=== PATIENT | female | born 1945 | race American Indian/Alaskan Native ===

== ENCOUNTER 2018-04-19 06:01 | Inpatient (IN) | payer MEDICARE, OTHER ==
[~2018-04-19] VITALS: Ht 162.6 cm; Wt 75.6 kg
[~2018-04-19 06:01] MED LIST: ALBU90I INH; AZAT50 PO; AZIT250 PO; CEFP200 PO; CLOR7.5; CYCL10 PO; DOC250 PO; DOXY100 PO; GABA100 PO; HYDACE10B; HYDACE5; IBUP800 PO; LEVOTHYROXINE; LEVSOD150 PO; METO100; METO50; METO50 PO; METOPROLOL; OMEG1CAP30 PO; OXAZEPAM; OXYACE5T PO; OXYC30 PO; PRAV20; PRED20 PO; PROCODE120 PO; Prednisone20 MG PO; SAXA2.5T PO; SIMV10 PO; SULI200; TRADJENTA PO; TRADJENTA5 MG PO; TRANSENE; [UNRECOGNIZED DRUG - REMARK]
[2018-04-19] MEDS ORDERED: Atarax10 MG PO (06:16)
[2018-04-19 07:00] LABS: BASOPHILS ABSOLUTE AUTO 0.03 K/mm3 (0.00-0.23); BASOPHILS PERCENT AUTO 0 % (0-2); EOSINOPHILS ABSOLUTE AUTO 0.02 K/mm3 (0.00-0.68); EOSINOPHILS PERCENT AUTO 0 % (0-6); Hematocrit 43.1 % (33.0-51.0); Hemoglobin 14.1 g/dL (11.5-16.0); IMMATURE GRAN ABSOLUTE AUTO 0.02 K/mm3 (0.00-0.10); IMMATURE GRAN PERCENT AUTO 0 % (0-1); LYMPHOCYTES ABSOLUTE AUTO 1.07 K/mm3 (0.84-5.20); LYMPHOCYTES PERCENT AUTO 15 % (21-46); MONOCYTES ABSOLUTE AUTO 0.52 K/mm3 (0.16-1.47); MONOCYTES PERCENT AUTO 7 % (4-13); Mean Corpuscular HGB 31.5 pg (26.0-34.0); Mean Corpuscular HGB Conc 32.7 g/dL (31.5-36.5); Mean Corpuscular Volume 96 fL (80-100); Mean Platelet Volume 11.2 fL (9.1-12.4); NEUTROPHILS ABSOLUTE AUTO 5.51 K/mm3 (1.96-9.15); NEUTROPHILS PERCENT AUTO 77 % (41-73); Platelet Count 168 K/mm3 (150-400); RDW Coefficient Variation 15.3 % (11.7-14.2); RDW Standard Deviation 54.7 fL (35.1-46.3); Red Blood Cell Count 4.47 M/mm3 (3.80-5.20); White Blood Cell Count 7.17 K/mm3 (4.00-11.30)
[2018-04-19 07:22] LABS: Base Excess Venous 2.1 mmol/L; Bicarbonate Venous 25.8 mmol/L (24.0-30.0); PCO2 Venous 42.8 mmHg (38-42); PO2 Venous 73.8 mmHg (38-42); pH Blood Venous 7.41 (7.34-7.37)
[2018-04-19 07:24] LABS: Alanine Aminotransfer (ALT/SGP 11 U/L (12-78); Albumin, Blood 2.9 g/dL (3.4-5.0); Albumin/Globulin Ratio 0.5 (0.8-1.8); Alk Phos 49 U/L (50-136); Anion Gap 8 mmol/L (6-16); Aspartate Aminotrans (AST/SGOT 16 U/L (12-37); Bilirubin, Total 0.8 mg/dL (0.1-1.0); Blood Urea Nitrogen 15 mg/dL (8-24); Bun/Creatinine Ratio 15.7 (12.0-20.0); CO2, Blood 27 mmol/L (21-32); Calcium, Blood 8.7 mg/dL (8.5-10.1); Chloride, Blood 101 mmol/L (98-108); Creatinine, Blood 0.95 mg/dL (0.40-1.00); Globulin, Blood 5.5 g/dL (2.2-4.0); Glomerular Filtration Rate >60 (60-); Glucose, Blood 108 mg/dL (70-99); Sodium, Blood 136 mmol/L (136-145); Total Protein, Blood 8.4 g/dL (6.4-8.2); Troponin I 0.287 ng/mL (0.000-0.040)
[2018-04-19 07:28] LABS: Thyroid Stimulating Hormone 0.346 uIU/mL (0.360-4.800)
[2018-04-19] MEDS ORDERED: CLORAZEPATE DIP PO (07:56)
[2018-04-19] MEDS ORDERED: PREG150 PO (07:56)
[2018-04-19] MEDS ORDERED: GABA300 PO (07:57)
[2018-04-19 08:48] LABS: U Amphetamine Screen Not Detected; U Barbituate Screen Not Detected; U Benzodiazapine Screen DETECTED; U Buprenorphine Screen Not Detected; U Cannabinoids Screen Not Detected; U Cocaine Screen Not Detected; U Methadone Screen Not Detected; U Methamphetamine Screen Not Detected; U Opiates Screen Not Detected; U Oxycodone Screen DETECTED; U Phencyclidine Screen Not Detected; U Propoxyphene Screen Not Detected
[2018-04-19 11:54] LABS: PCO2 Arterial 48.3 mmHg (35-45); PO2 Arterial 50.6 mmHg (80-100)
[2018-04-20 07:25] LABS: BASOPHILS ABSOLUTE AUTO 0.01 K/mm3 (0.00-0.23); BASOPHILS PERCENT AUTO 0 % (0-2); EOSINOPHILS ABSOLUTE AUTO 0.01 K/mm3 (0.00-0.68); EOSINOPHILS PERCENT AUTO 0 % (0-6); Hematocrit 43.6 % (33.0-51.0); Hemoglobin 14.1 g/dL (11.5-16.0); IMMATURE GRAN ABSOLUTE AUTO 0.06 K/mm3 (0.00-0.10); IMMATURE GRAN PERCENT AUTO 1 % (0-1); LYMPHOCYTES PERCENT AUTO 9 % (21-46); MONOCYTES ABSOLUTE AUTO 0.73 K/mm3 (0.16-1.47); MONOCYTES PERCENT AUTO 6 % (4-13); Mean Corpuscular HGB 30.5 pg (26.0-34.0); Mean Corpuscular HGB Conc 32.3 g/dL (31.5-36.5); Mean Corpuscular Volume 94 fL (80-100); Mean Platelet Volume 11.3 fL (9.1-12.4); NEUTROPHILS ABSOLUTE AUTO 9.63 K/mm3 (1.96-9.15); NEUTROPHILS PERCENT AUTO 84 % (41-73); Platelet Count 198 K/mm3 (150-400); RDW Coefficient Variation 15.4 % (11.7-14.2); RDW Standard Deviation 52.7 fL (35.1-46.3); Red Blood Cell Count 4.62 M/mm3 (3.80-5.20); White Blood Cell Count 11.44 K/mm3 (4.00-11.30)
[2018-04-20 07:46] LABS: Albumin, Blood 2.7 g/dL (3.4-5.0); Albumin/Globulin Ratio 0.5 (0.8-1.8); Bilirubin, Total 0.4 mg/dL (0.1-1.0); Bun/Creatinine Ratio 22.9 (12.0-20.0); Calcium, Blood 8.8 mg/dL (8.5-10.1); Creatinine, Blood 1.18 mg/dL (0.40-1.00); Globulin, Blood 5.3 g/dL (2.2-4.0); Potassium, Blood 4.1 mmol/L (3.5-5.5); Troponin I 0.177 ng/mL (0.000-0.040)
[2018-04-21 04:35] LABS: BASOPHILS ABSOLUTE AUTO 0.03 K/mm3 (0.00-0.23); BASOPHILS PERCENT AUTO 0 % (0-2); EOSINOPHILS ABSOLUTE AUTO 0.03 K/mm3 (0.00-0.68); EOSINOPHILS PERCENT AUTO 0 % (0-6); Hematocrit 42.5 % (33.0-51.0); Hemoglobin 13.6 g/dL (11.5-16.0); IMMATURE GRAN ABSOLUTE AUTO 0.06 K/mm3 (0.00-0.10); IMMATURE GRAN PERCENT AUTO 1 % (0-1); LYMPHOCYTES PERCENT AUTO 12 % (21-46); MONOCYTES ABSOLUTE AUTO 0.63 K/mm3 (0.16-1.47); MONOCYTES PERCENT AUTO 6 % (4-13); Mean Corpuscular HGB 30.6 pg (26.0-34.0); Mean Corpuscular Volume 96 fL (80-100); Mean Platelet Volume 11.3 fL (9.1-12.4); NEUTROPHILS ABSOLUTE AUTO 8.44 K/mm3 (1.96-9.15); NEUTROPHILS PERCENT AUTO 81 % (41-73); Platelet Count 200 K/mm3 (150-400); RDW Coefficient Variation 15.4 % (11.7-14.2); RDW Standard Deviation 53.8 fL (35.1-46.3); Red Blood Cell Count 4.44 M/mm3 (3.80-5.20); White Blood Cell Count 10.39 K/mm3 (4.00-11.30)
[2018-04-21 04:56] LABS: Albumin, Blood 2.8 g/dL (3.4-5.0); Albumin/Globulin Ratio 0.5 (0.8-1.8); Bilirubin, Total 0.3 mg/dL (0.1-1.0); Bun/Creatinine Ratio 30.7 (12.0-20.0); Calcium, Blood 8.6 mg/dL (8.5-10.1); Creatinine, Blood 1.4 mg/dL (0.40-1.00); Free Thyroxine 1.4 ng/dL (0.70-1.60); Globulin, Blood 5.1 g/dL (2.2-4.0); Potassium, Blood 4.6 mmol/L (3.5-5.5); Total Protein, Blood 7.9 g/dL (6.4-8.2)
[2018-04-21] MEDS ORDERED: FURO20 PO (13:41)
[2018-04-21] MEDS ORDERED: ALBU3IS INH (13:45)
[2018-04-21] MEDS ORDERED: Prednisone10 MG PO (13:48)
[2018-04-21] MEDS ORDERED: Pulmicort Flex90 MCG INH (14:03)
[2018-04-21] MEDS ORDERED: CEFD300 PO (14:05)
== END 2018-04-21 15:32 | disposition home or self-care (01) | DRG 291 ==
LOC: ER 06:01 → MEDS 06:02
PROVIDERS: Emergency Medicine; Internal Medicine
DX: I11.0 Hypertensive heart disease with heart failure (principal); J96.01 Acute respiratory failure with hypoxia; J44.1 Chronic obstructive pulmonary disease with (acute) exacerbation; J44.0 Chronic obstructive pulmonary disease with (acute) lower respiratory infection; I24.8 Other forms of acute ischemic heart disease; I50.31 Acute diastolic (congestive) heart failure; F17.210 Nicotine dependence, cigarettes, uncomplicated; M06.9 Rheumatoid arthritis, unspecified; E83.119 Hemochromatosis, unspecified; I45.10 Unspecified right bundle-branch block; I44.0 Atrioventricular block, first degree; E11.9 Type 2 diabetes mellitus without complications; F41.8 Other specified anxiety disorders; E78.5 Hyperlipidemia, unspecified; I42.5 Other restrictive cardiomyopathy; J20.9 Acute bronchitis, unspecified; E03.9 Hypothyroidism, unspecified; Z79.84 Long term (current) use of oral hypoglycemic drugs; E78.1 Pure hyperglyceridemia; I27.23 Pulmonary hypertension due to lung diseases and hypoxia; I27.81 Cor pulmonale (chronic); I35.8 Other nonrheumatic aortic valve disorders; Z99.81 Dependence on supplemental oxygen
CPT/HCPCS: 36415; 36600; 71046; 80053; 82803; 82947; 83880; 84439; 84443; 84484; 85025; 93005; 93010; 93306; 94640; 94761; 94762; 96365; 96375; 99285; J0456; J0696; J1650; J1940; J2920; J2930; J7030; J7050; J7120

== ENCOUNTER 2018-06-01 00:14 | Emergency (ER) | payer MEDICARE, OTHER ==
[~2018-06-01] VITALS: Ht 165.1 cm; Wt 77.1 kg
[~2018-06-01 00:14] MED LIST changes: +ALBU3IS INH; +Atarax10 MG PO; +CEFD300 PO; +CLORAZEPATE DIP PO; +FURO20 PO; +GABA300 PO; +PREG150 PO; +Prednisone10 MG PO; +Pulmicort Flex90 MCG INH
[2018-06-01 03:30] LABS: BASOPHILS ABSOLUTE AUTO 0.04 K/mm3 (0.00-0.23); BASOPHILS PERCENT AUTO 1 % (0-2); EOSINOPHILS ABSOLUTE AUTO 0.11 K/mm3 (0.00-0.68); EOSINOPHILS PERCENT AUTO 2 % (0-6); Hematocrit 44.8 % (33.0-51.0); Hemoglobin 14.6 g/dL (11.5-16.0); IMMATURE GRAN ABSOLUTE AUTO 0.02 K/mm3 (0.00-0.10); IMMATURE GRAN PERCENT AUTO 0 % (0-1); LYMPHOCYTES ABSOLUTE AUTO 1.14 K/mm3 (0.84-5.20); LYMPHOCYTES PERCENT AUTO 16 % (21-46); MONOCYTES ABSOLUTE AUTO 0.49 K/mm3 (0.16-1.47); MONOCYTES PERCENT AUTO 7 % (4-13); Mean Corpuscular HGB 30.8 pg (26.0-34.0); Mean Corpuscular HGB Conc 32.6 g/dL (31.5-36.5); Mean Corpuscular Volume 95 fL (80-100); Mean Platelet Volume 11.4 fL (9.1-12.4); NEUTROPHILS ABSOLUTE AUTO 5.34 K/mm3 (1.96-9.15); NEUTROPHILS PERCENT AUTO 75 % (41-73); Platelet Count 177 K/mm3 (150-400); RDW Coefficient Variation 15.5 % (11.7-14.2); RDW Standard Deviation 53.8 fL (35.1-46.3); Red Blood Cell Count 4.74 M/mm3 (3.80-5.20); White Blood Cell Count 7.14 K/mm3 (4.00-11.30)
[2018-06-01 03:52] LABS: Albumin/Globulin Ratio 0.6 (0.8-1.8); Bilirubin, Total 0.6 mg/dL (0.1-1.0); Bun/Creatinine Ratio 17.1 (12.0-20.0); Calcium, Blood 8.5 mg/dL (8.5-10.1); Creatinine, Blood 0.99 mg/dL (0.40-1.00); Globulin, Blood 4.7 g/dL (2.2-4.0); Magnesium, Blood 2.2 mg/dL (1.6-2.4); Potassium, Blood 4.4 mmol/L (3.5-5.5); Total Protein, Blood 7.7 g/dL (6.4-8.2); Troponin I 0.131 ng/mL (0.000-0.040)
== END 2018-06-01 06:12 | disposition home or self-care (01) ==
LOC: ER 00:14
PROVIDERS: Emergency Medicine
DX: R53.1 Weakness (principal); I11.0 Hypertensive heart disease with heart failure; I50.9 Heart failure, unspecified; E11.9 Type 2 diabetes mellitus without complications; J44.9 Chronic obstructive pulmonary disease, unspecified; F17.210 Nicotine dependence, cigarettes, uncomplicated; Z79.899 Other long term (current) drug therapy; Z79.51 Long term (current) use of inhaled steroids
CPT/HCPCS: 36415; 71046; 80053; 83735; 84484; 85025; 93005; 93010; 99284-25

== ENCOUNTER 2018-06-03 14:57 | Observation (INO) | payer MEDICARE, OTHER ==
[~2018-06-03] VITALS: Ht 162.6 cm; Wt 69.7 kg
[2018-06-03 15:30] LABS: Albumin, Blood 3.4 g/dL (3.4-5.0); Albumin/Globulin Ratio 0.7 (0.8-1.8); Bilirubin, Total 0.7 mg/dL (0.1-1.0); Calcium, Blood 8.9 mg/dL (8.5-10.1); Globulin, Blood 5.1 g/dL (2.2-4.0); Total Protein, Blood 8.5 g/dL (6.4-8.2)
[2018-06-03 15:36] LABS: BASOPHILS ABSOLUTE AUTO 0.03 K/mm3 (0.00-0.23); BASOPHILS PERCENT AUTO 1 % (0-2); EOSINOPHILS ABSOLUTE AUTO 0.03 K/mm3 (0.00-0.68); EOSINOPHILS PERCENT AUTO 1 % (0-6); Hematocrit 51.5 % (33.0-51.0); Hemoglobin 16.8 g/dL (11.5-16.0); IMMATURE GRAN ABSOLUTE AUTO 0.02 K/mm3 (0.00-0.10); IMMATURE GRAN PERCENT AUTO 0 % (0-1); LYMPHOCYTES ABSOLUTE AUTO 1.18 K/mm3 (0.84-5.20); LYMPHOCYTES PERCENT AUTO 19 % (21-46); MONOCYTES ABSOLUTE AUTO 0.42 K/mm3 (0.16-1.47); MONOCYTES PERCENT AUTO 7 % (4-13); Mean Corpuscular HGB 30.2 pg (26.0-34.0); Mean Corpuscular HGB Conc 32.6 g/dL (31.5-36.5); Mean Corpuscular Volume 93 fL (80-100); Mean Platelet Volume 11.5 fL (9.1-12.4); NEUTROPHILS PERCENT AUTO 73 % (41-73); Platelet Count 191 K/mm3 (150-400); RDW Coefficient Variation 15.6 % (11.7-14.2); RDW Standard Deviation 52.7 fL (35.1-46.3); Red Blood Cell Count 5.57 M/mm3 (3.80-5.20); White Blood Cell Count 6.18 K/mm3 (4.00-11.30)
[2018-06-03 18:19] LABS: Source, Urine Clean Catch
[2018-06-03 18:25] LABS: Appearance, Urine Clear (Clear); Bilirubin, Urine Neg (Neg); Blood, Urine 5+ (Neg); Color, Urine Yellow (P-Yellow); Glucose Qualitative, Urine Neg (Neg); Ketones, Urine Neg (Neg); Leukocyte Esterase, Urine Neg (Neg); Nitrite, Urine Neg (Neg); Protein, Urine 2+ (Neg); Specific Gravity, Urine 1.005 (1.003-1.022); Urobilinogen, Urine NORM (Normal)
[2018-06-03 18:53] LABS: Red Blood Cells, Urine 25-50 /hpf (0-2); White Blood Cells, Urine 0-2 /hpf (0-5)
[2018-06-03 18:54] LABS: Bacteria Few /hpf; Squamous Epithelial Cells Rare /hpf (Few)
[2018-06-03] MEDS ORDERED: ACET500 PO (22:11)
[2018-06-03 22:22] LABS: Troponin I 0.146 ng/mL (0.000-0.040)
[2018-06-03 22:24] LABS: Thyroid Stimulating Hormone 1.75 uIU/mL (0.360-4.800)
[2018-06-05 05:37] LABS: BASOPHILS ABSOLUTE AUTO 0.03 K/mm3 (0.00-0.23); BASOPHILS PERCENT AUTO 0 % (0-2); EOSINOPHILS PERCENT AUTO 0 % (0-6); Hemoglobin 13.8 g/dL (11.5-16.0); IMMATURE GRAN ABSOLUTE AUTO 0.03 K/mm3 (0.00-0.10); IMMATURE GRAN PERCENT AUTO 0 % (0-1); LYMPHOCYTES ABSOLUTE AUTO 1.14 K/mm3 (0.84-5.20); LYMPHOCYTES PERCENT AUTO 10 % (21-46); MONOCYTES ABSOLUTE AUTO 0.64 K/mm3 (0.16-1.47); MONOCYTES PERCENT AUTO 6 % (4-13); Mean Corpuscular HGB 30.1 pg (26.0-34.0); Mean Corpuscular HGB Conc 32.1 g/dL (31.5-36.5); Mean Corpuscular Volume 94 fL (80-100); Mean Platelet Volume 11.8 fL (9.1-12.4); NEUTROPHILS ABSOLUTE AUTO 9.27 K/mm3 (1.96-9.15); NEUTROPHILS PERCENT AUTO 83 % (41-73); Platelet Count 182 K/mm3 (150-400); RDW Coefficient Variation 15.8 % (11.7-14.2); RDW Standard Deviation 54.5 fL (35.1-46.3); Red Blood Cell Count 4.58 M/mm3 (3.80-5.20); White Blood Cell Count 11.11 K/mm3 (4.00-11.30)
[2018-06-05 06:04] LABS: Albumin, Blood 2.8 g/dL (3.4-5.0); Albumin/Globulin Ratio 0.7 (0.8-1.8); Bilirubin, Total 0.9 mg/dL (0.1-1.0); Bun/Creatinine Ratio 16.7 (12.0-20.0); Calcium, Blood 8.2 mg/dL (8.5-10.1); Creatinine, Blood 1.2 mg/dL (0.40-1.00); Potassium, Blood 4.1 mmol/L (3.5-5.5); Total Protein, Blood 6.8 g/dL (6.4-8.2)
[2018-06-06] MEDS ORDERED: AMOCLA500 PO (17:09)
[2018-06-06] MEDS ORDERED: Omeprazole20 M1 PO (17:10)
== END 2018-06-06 18:13 | disposition home or self-care (01) ==
LOC: ER 14:57 → MEDS 14:58 → ER 20:56 → MEDS 20:56 → ENPENDDIS 06-06 16:20 → MEDS 06-06 18:13
PROVIDERS: Emergency Medicine; Internal Medicine; Surgery
PROC: 0FT44ZZ Resection of Gallbladder, Percutaneous Endoscopic Approach (ICD-10-PCS; principal; 2018-06-04 15:30)
PROC: BF13YZZ Fluoroscopy of Gallbladder and Bile Ducts using Other Contrast (ICD-10-PCS; principal; 2018-06-04 15:30)
DX: K80.12 Calculus of gallbladder with acute and chronic cholecystitis without obstruction (principal); E11.9 Type 2 diabetes mellitus without complications; J44.9 Chronic obstructive pulmonary disease, unspecified; M06.9 Rheumatoid arthritis, unspecified; F41.9 Anxiety disorder, unspecified; I11.0 Hypertensive heart disease with heart failure; I50.30 Unspecified diastolic (congestive) heart failure; F17.210 Nicotine dependence, cigarettes, uncomplicated; R31.29 Other microscopic hematuria; E03.9 Hypothyroidism, unspecified; Z79.899 Other long term (current) drug therapy
CPT/HCPCS: 36415; 71046; 74177; 74300; 76705; 76770; 80053; 81001; 82947; 83036; 83690; 83880; 84443; 84484; 85025; 93005; 93010; 96361; 96365; 96372; 96375; 96376; 99284-25; C1729; C9113; G0378; J0690; J1100; J1650; J1815; J1885; J1940; J2250; J2405; J2550; J2710; J3010; J7030; J7120; Q9967

== ENCOUNTER 2018-06-08 00:54 | Observation (INO) | payer MEDICARE, OTHER ==
[~2018-06-08] VITALS: Ht 165.1 cm; Wt 68.5 kg
[~2018-06-08 00:54] MED LIST changes: +ACET500 PO; +AMOCLA500 PO; +Omeprazole20 M1 PO
[2018-06-08 01:15] LABS: BASOPHILS ABSOLUTE AUTO 0.03 K/mm3 (0.00-0.23); BASOPHILS PERCENT AUTO 0 % (0-2); EOSINOPHILS ABSOLUTE AUTO 0.19 K/mm3 (0.00-0.68); EOSINOPHILS PERCENT AUTO 2 % (0-6); Hemoglobin 14.9 g/dL (11.5-16.0); IMMATURE GRAN ABSOLUTE AUTO 0.05 K/mm3 (0.00-0.10); IMMATURE GRAN PERCENT AUTO 1 % (0-1); LYMPHOCYTES ABSOLUTE AUTO 0.91 K/mm3 (0.84-5.20); LYMPHOCYTES PERCENT AUTO 8 % (21-46); MONOCYTES ABSOLUTE AUTO 0.42 K/mm3 (0.16-1.47); MONOCYTES PERCENT AUTO 4 % (4-13); Mean Corpuscular HGB 31.2 pg (26.0-34.0); Mean Corpuscular HGB Conc 33.1 g/dL (31.5-36.5); Mean Corpuscular Volume 94 fL (80-100); Mean Platelet Volume 11.6 fL (9.1-12.4); NEUTROPHILS ABSOLUTE AUTO 9.33 K/mm3 (1.96-9.15); NEUTROPHILS PERCENT AUTO 85 % (41-73); Platelet Count 167 K/mm3 (150-400); RDW Coefficient Variation 15.7 % (11.7-14.2); RDW Standard Deviation 54.8 fL (35.1-46.3); Red Blood Cell Count 4.77 M/mm3 (3.80-5.20); White Blood Cell Count 10.93 K/mm3 (4.00-11.30)
[2018-06-08 01:31] LABS: Alanine Aminotransfer (ALT/SGP 10 U/L (12-78); Albumin, Blood 2.6 g/dL (3.4-5.0); Albumin/Globulin Ratio 0.5 (0.8-1.8); Alk Phos 57 U/L (50-136); Anion Gap 9 mmol/L (6-16); Aspartate Aminotrans (AST/SGOT 14 U/L (12-37); Bilirubin, Total 0.6 mg/dL (0.1-1.0); Blood Urea Nitrogen 21 mg/dL (8-24); Bun/Creatinine Ratio 24.5 (12.0-20.0); CO2, Blood 25 mmol/L (21-32); Calcium, Blood 8.9 mg/dL (8.5-10.1); Chloride, Blood 101 mmol/L (98-108); Creatinine, Blood 0.86 mg/dL (0.40-1.00); Globulin, Blood 5.1 g/dL (2.2-4.0); Glomerular Filtration Rate >60 (60-); Glucose, Blood 146 mg/dL (70-99); Potassium, Blood 3.7 mmol/L (3.5-5.5); Sodium, Blood 135 mmol/L (136-145); Total Protein, Blood 7.7 g/dL (6.4-8.2)
[2018-06-08 06:04] LABS: Source, Urine Clean Catch
[2018-06-08 06:23] LABS: Bilirubin, Urine Neg (Neg); Blood, Urine 5+ (Neg); Glucose Qualitative, Urine Neg (Neg); Ketones, Urine 1+ (Neg); Leukocyte Esterase, Urine 1+ (Neg); Nitrite, Urine Neg (Neg); Protein, Urine 3+ (Neg); Urobilinogen, Urine 1+ (Normal)
[2018-06-08 06:54] LABS: Appearance, Urine Clear (Clear); Color, Urine Yellow (P-Yellow)
[2018-06-08 06:59] LABS: Squamous Epithelial Cells Mod /hpf (Few)
[2018-06-08 07:01] LABS: Bacteria Few /hpf
== END 2018-06-10 17:07 | disposition home or self-care (01) ==
LOC: ER 00:54 → MEDS 00:55 → SURS 00:55
PROVIDERS: Emergency Medicine
DX: R10.9 Unspecified abdominal pain (principal); G89.18 Other acute postprocedural pain; E11.9 Type 2 diabetes mellitus without complications; J44.9 Chronic obstructive pulmonary disease, unspecified; M10.9 Gout, unspecified; I11.0 Hypertensive heart disease with heart failure; I50.32 Chronic diastolic (congestive) heart failure; E83.119 Hemochromatosis, unspecified; F17.210 Nicotine dependence, cigarettes, uncomplicated; F41.9 Anxiety disorder, unspecified; Z90.49 Acquired absence of other specified parts of digestive tract; Z79.899 Other long term (current) drug therapy
CPT/HCPCS: 36415; 71046; 74177; 80053; 81001; 83690; 85025; 94760; 96372; 96374; 96375; 96376; 99285-25; G0378; J1650; J2405; J3010; Q9967

== ENCOUNTER 2018-08-02 16:36 | Emergency (ER) | payer MEDICARE, OTHER ==
[~2018-08-02] VITALS: Ht 162.6 cm; Wt 65.3 kg
[2018-08-02 17:12] LABS: BASOPHILS ABSOLUTE AUTO 0.02 K/mm3 (0.00-0.23); BASOPHILS PERCENT AUTO 0 % (0-2); EOSINOPHILS PERCENT AUTO 0 % (0-6); Hematocrit 45.1 % (33.0-51.0); Hemoglobin 15.1 g/dL (11.5-16.0); IMMATURE GRAN ABSOLUTE AUTO 0.06 K/mm3 (0.00-0.10); IMMATURE GRAN PERCENT AUTO 1 % (0-1); LYMPHOCYTES ABSOLUTE AUTO 1.06 K/mm3 (0.84-5.20); LYMPHOCYTES PERCENT AUTO 9 % (21-46); MONOCYTES ABSOLUTE AUTO 1.08 K/mm3 (0.16-1.47); MONOCYTES PERCENT AUTO 9 % (4-13); Mean Corpuscular HGB 31.1 pg (26.0-34.0); Mean Corpuscular HGB Conc 33.5 g/dL (31.5-36.5); Mean Corpuscular Volume 93 fL (80-100); Mean Platelet Volume 10.5 fL (9.1-12.4); NEUTROPHILS ABSOLUTE AUTO 9.98 K/mm3 (1.96-9.15); NEUTROPHILS PERCENT AUTO 82 % (41-73); Platelet Count 206 K/mm3 (150-400); RDW Coefficient Variation 14.5 % (11.7-14.2); RDW Standard Deviation 48.7 fL (35.1-46.3); Red Blood Cell Count 4.85 M/mm3 (3.80-5.20)
[2018-08-02 17:32] LABS: Alanine Aminotransfer (ALT/SGP 10 U/L (12-78); Albumin/Globulin Ratio 0.5 (0.8-1.8); Alk Phos 76 U/L (50-136); Anion Gap 10 mmol/L (6-16); Aspartate Aminotrans (AST/SGOT 12 U/L (12-37); Bilirubin, Total 1.2 mg/dL (0.1-1.0); Blood Urea Nitrogen 13 mg/dL (8-24); Bun/Creatinine Ratio 15.4 (12.0-20.0); CO2, Blood 26 mmol/L (21-32); Calcium, Blood 8.8 mg/dL (8.5-10.1); Chloride, Blood 96 mmol/L (98-108); Creatinine, Blood 0.85 mg/dL (0.40-1.00); Globulin, Blood 5.5 g/dL (2.2-4.0); Glomerular Filtration Rate >60 (60-); Glucose, Blood 146 mg/dL (70-99); Potassium, Blood 3.9 mmol/L (3.5-5.5); Sodium, Blood 132 mmol/L (136-145); Total Protein, Blood 8.5 g/dL (6.4-8.2); Troponin I 0.133 ng/mL (0.000-0.040)
[2018-08-02] MEDS ORDERED: Zithromax250 MG PO (19:24)
== END 2018-08-02 19:48 | disposition home or self-care (01) ==
LOC: ER 16:36
PROVIDERS: Emergency Medicine
DX: G89.29 Other chronic pain (principal); M25.511 Pain in right shoulder; J40 Bronchitis, not specified as acute or chronic; E11.9 Type 2 diabetes mellitus without complications; J44.9 Chronic obstructive pulmonary disease, unspecified; I10 Essential (primary) hypertension; Z79.899 Other long term (current) drug therapy
CPT/HCPCS: 71046; 80053; 83880; 84484; 85025; 93005; 93010; 96374; 96375; 99284-25; J1170; J3010

== ENCOUNTER 2019-03-03 17:10 | Inpatient (IN) | payer MEDICARE, OTHER ==
[~2019-03-03] VITALS: Ht 167.6 cm; Wt 77.1 kg
[~2019-03-03 17:10] MED LIST changes: +ACET325 PO; +GAVILAX17 GM PO; +HYDHCL25 PO; +LEVFLO500 PO; +LEVO-T175 MCG PO; +METPRE4DP PO; +NICO21TP; +ONDA8 PO; -OXYC30 PO; +POTA10T PO; +PRED10; +PRED10 PO; +SENN187; +Zithromax250 MG PO
[2019-03-03 17:50] LABS: BASOPHILS ABSOLUTE AUTO 0.01 K/mm3 (0.00-0.23); BASOPHILS PERCENT AUTO 0 % (0-2); EOSINOPHILS ABSOLUTE AUTO 0.02 K/mm3 (0.00-0.68); EOSINOPHILS PERCENT AUTO 0 % (0-6); Hematocrit 45.5 % (33.0-51.0); Hemoglobin 14.9 g/dL (11.5-16.0); IMMATURE GRAN ABSOLUTE AUTO 0.04 K/mm3 (0.00-0.10); IMMATURE GRAN PERCENT AUTO 0 % (0-1); LYMPHOCYTES ABSOLUTE AUTO 0.98 K/mm3 (0.84-5.20); LYMPHOCYTES PERCENT AUTO 11 % (21-46); MONOCYTES ABSOLUTE AUTO 0.65 K/mm3 (0.16-1.47); MONOCYTES PERCENT AUTO 7 % (4-13); Mean Corpuscular HGB 32.6 pg (26.0-34.0); Mean Corpuscular HGB Conc 32.7 g/dL (31.5-36.5); Mean Corpuscular Volume 100 fL (80-100); Mean Platelet Volume 10.3 fL (9.1-12.4); NEUTROPHILS ABSOLUTE AUTO 7.41 K/mm3 (1.96-9.15); NEUTROPHILS PERCENT AUTO 81 % (41-73); Platelet Count 189 K/mm3 (150-400); RDW Coefficient Variation 14.8 % (11.7-14.2); RDW Standard Deviation 53.3 fL (35.1-46.3); Red Blood Cell Count 4.57 M/mm3 (3.80-5.20); White Blood Cell Count 9.11 K/mm3 (4.00-11.30)
[2019-03-03 18:11] LABS: Alanine Aminotransfer (ALT/SGP 17 U/L (12-78); Albumin, Blood 3.4 g/dL (3.4-5.0); Albumin/Globulin Ratio 0.7 (0.8-1.8); Alk Phos 69 U/L (50-136); Anion Gap 6 mmol/L (6-16); Aspartate Aminotrans (AST/SGOT 23 U/L (12-37); Bilirubin, Total 0.6 mg/dL (0.1-1.0); Blood Urea Nitrogen 22 mg/dL (8-24); Bun/Creatinine Ratio 25.3 (12.0-20.0); CO2, Blood 29 mmol/L (21-32); Chloride, Blood 101 mmol/L (98-108); Creatinine, Blood 0.87 mg/dL (0.40-1.00); Globulin, Blood 4.7 g/dL (2.2-4.0); Glomerular Filtration Rate >60 (60-); Glucose, Blood 105 mg/dL (70-99); Potassium, Blood 4.3 mmol/L (3.5-5.5); Sodium, Blood 136 mmol/L (136-145); Total Protein, Blood 8.1 g/dL (6.4-8.2)
[2019-03-03] MEDS ORDERED: Oxycodone HCl20 M1 PO (19:53)
[2019-03-04 00:32] LABS: Adenovirus Not Detected (NOT DETECT); Bordetella pertussis Not Detected (NOT DETECT); Chlamydophila pneumoniae Not Detected (NOT DETECT); Coronavirus 229E Not Detected (NOT DETECT); Coronavirus HKU1 Not Detected (NOT DETECT); Coronavirus NL63 Not Detected (NOT DETECT); Coronavirus OC43 Not Detected (NOT DETECT); Human Metapneumovirus Not Detected (NOT DETECT); Human Rhinovirus/Enterovirus Not Detected (NOT DETECT); Influenza A Not Detected (NOT DETECT); Influenza A/2009-H1 Not Detected (NOT DETECT); Influenza A/H1 Not Detected (NOT DETECT); Influenza A/H3 Not Detected (NOT DETECT); Influenza B Not Detected (NOT DETECT); Mycoplasma pneumoniae Not Detected (NOT DETECT); Parainfluenza Virus 1 Not Detected (NOT DETECT); Parainfluenza Virus 2 Not Detected (NOT DETECT); Parainfluenza Virus 3 Not Detected (NOT DETECT); Parainfluenza Virus 4 Not Detected (NOT DETECT); Respiratory Syncytial Virus Not Detected (NOT DETECT)
--- NOTE | 2019-03-04 03:50 | NUR ---
2121 RECEIVED REPORT FROM ED RN. SBAR FORM COMPLETED AND PLACED IN CHART. ARRIVED TO MEDICAL UNIT @ 2121 VIA STRETCHER. MINIMAL HELP WITH TRANSFER FROM STRETCHER TO BED. ORIENTED TO ROOM AND CALL SYSTEM. BED IN LOWEST POSITION. CALL LIGHT IN REACH. WCTM.
--- NOTE | 2019-03-04 04:58 | NUR ---
SHIFT SUMMARY A/O, ABLE TO MAKE NEEDS KNOWN. COOPERATIVE WITH CARE. ANSWERS QUESTIONS APPROPRIATELY. C/O PAIN/DISCOMFORT THAT IS CHRONIC IN NATURE; MEDICATED PER EMAR. ON 2L VIA NC; USES PRN. LUNGS CTA. REMAINS DYSPNEIC. DRY HACKING COUGH THAT IS NON-PRODUCTIVE. AT BEDSIDE THROUGHOUT NIGHT. DID NOT APPEAR TO REST MUCH. UP TO BSC WITH SBA. BED IN LOWEST POSITION. CALL LIGHT AND BELONGINGS WITHIN REACH. WCTM. REPORT TO ONCOMING RN.
[2019-03-04 05:34] LABS: BASOPHILS ABSOLUTE AUTO 0.01 K/mm3 (0.00-0.23); BASOPHILS PERCENT AUTO 0 % (0-2); EOSINOPHILS PERCENT AUTO 0 % (0-6); Hemoglobin 14.5 g/dL (11.5-16.0); IMMATURE GRAN ABSOLUTE AUTO 0.03 K/mm3 (0.00-0.10); IMMATURE GRAN PERCENT AUTO 1 % (0-1); LYMPHOCYTES ABSOLUTE AUTO 0.46 K/mm3 (0.84-5.20); LYMPHOCYTES PERCENT AUTO 7 % (21-46); MONOCYTES ABSOLUTE AUTO 0.05 K/mm3 (0.16-1.47); MONOCYTES PERCENT AUTO 1 % (4-13); Mean Corpuscular HGB 32.2 pg (26.0-34.0); Mean Corpuscular HGB Conc 32.2 g/dL (31.5-36.5); Mean Corpuscular Volume 100 fL (80-100); Mean Platelet Volume 10.3 fL (9.1-12.4); NEUTROPHILS ABSOLUTE AUTO 5.98 K/mm3 (1.96-9.15); NEUTROPHILS PERCENT AUTO 92 % (41-73); Platelet Count 183 K/mm3 (150-400); RDW Coefficient Variation 14.6 % (11.7-14.2); RDW Standard Deviation 53.5 fL (35.1-46.3); White Blood Cell Count 6.53 K/mm3 (4.00-11.30)
[2019-03-04 05:56] LABS: Anion Gap 7 mmol/L (6-16); Blood Urea Nitrogen 29 mg/dL (8-24); Bun/Creatinine Ratio 31.6 (12.0-20.0); CO2, Blood 26 mmol/L (21-32); Calcium, Blood 8.8 mg/dL (8.5-10.1); Chloride, Blood 100 mmol/L (98-108); Creatinine, Blood 0.92 mg/dL (0.40-1.00); Glomerular Filtration Rate >60 (60-); Glucose, Blood 150 mg/dL (70-99); Potassium, Blood 4.5 mmol/L (3.5-5.5); Sodium, Blood 133 mmol/L (136-145)
[2019-03-04 17:14] LABS: Bun/Creatinine Ratio 42.3 (12.0-20.0); Calcium, Blood 8.7 mg/dL (8.5-10.1); Creatinine, Blood 0.97 mg/dL (0.40-1.00); Potassium, Blood 4.5 mmol/L (3.5-5.5)
--- NOTE | 2019-03-04 18:04 | NUR ---
SHIFT SUMMARY NO ACUTE CHANGES. PATIENT UP SBA TO BATHROOM. AT BEDSIDE. POSSIBLE DISCHARGE TOMORROW. MEDICATED X2 FOR PAIN. 2L 02 PRN FOR SHORTNESS OF BREATH. CALL LIGHT IN REACH, WILL CONTINUE TO MONITOR.
--- NOTE | 2019-03-05 05:04 | NUR ---
SHIFT SUMMARY PT A/O C/O PAIN AND MEDICATED PER EMAR. FAMILY WHEELED HER IN W/C AROUND FLOOR AND OUTSIDE TO POSS SMOKE. CONGESTED SOUNDING COUGH. SHE WAS ABLE TO SLEEP T/O NIGHT. STAYED IN ROOM, SOMETIMES SLEEPING IN SAME PT'S BED. CALL LIGHT IN REACH.
[2019-03-05 05:34] LABS: BASOPHILS ABSOLUTE AUTO 0.01 K/mm3 (0.00-0.23); BASOPHILS PERCENT AUTO 0 % (0-2); EOSINOPHILS PERCENT AUTO 0 % (0-6); Hematocrit 45.5 % (33.0-51.0); IMMATURE GRAN ABSOLUTE AUTO 0.04 K/mm3 (0.00-0.10); IMMATURE GRAN PERCENT AUTO 0 % (0-1); LYMPHOCYTES ABSOLUTE AUTO 1.47 K/mm3 (0.84-5.20); LYMPHOCYTES PERCENT AUTO 14 % (21-46); MONOCYTES ABSOLUTE AUTO 0.96 K/mm3 (0.16-1.47); MONOCYTES PERCENT AUTO 9 % (4-13); Mean Corpuscular HGB 32.3 pg (26.0-34.0); Mean Corpuscular Volume 98 fL (80-100); Mean Platelet Volume 10.3 fL (9.1-12.4); NEUTROPHILS ABSOLUTE AUTO 8.05 K/mm3 (1.96-9.15); NEUTROPHILS PERCENT AUTO 76 % (41-73); Platelet Count 190 K/mm3 (150-400); RDW Coefficient Variation 14.6 % (11.7-14.2); RDW Standard Deviation 52.4 fL (35.1-46.3); Red Blood Cell Count 4.64 M/mm3 (3.80-5.20); White Blood Cell Count 10.53 K/mm3 (4.00-11.30)
[2019-03-05 05:58] LABS: Albumin, Blood 3.1 g/dL (3.4-5.0); Albumin/Globulin Ratio 0.7 (0.8-1.8); Bilirubin, Total 0.6 mg/dL (0.1-1.0); Bun/Creatinine Ratio 45.3 (12.0-20.0); Calcium, Blood 8.6 mg/dL (8.5-10.1); Creatinine, Blood 1.06 mg/dL (0.40-1.00); Globulin, Blood 4.6 g/dL (2.2-4.0); Magnesium, Blood 2.5 mg/dL (1.6-2.4); Phosphorus, Blood 3.3 mg/dL (2.5-4.9); Potassium, Blood 4.4 mmol/L (3.5-5.5); Total Protein, Blood 7.7 g/dL (6.4-8.2)
[2019-03-05] MEDS ORDERED: ACET325 PO (12:33)
[2019-03-05] MEDS ORDERED: FURO40 PO (12:34)
[2019-03-05] MEDS ORDERED: DULERA 200 MCG/13 GM INH (12:35)
[2019-03-05] MEDS ORDERED: SPIR25 PO (12:38)
[2019-03-05] MEDS ORDERED: ALBU90OI INH (12:40)
--- NOTE | 2019-03-05 13:14 | NUR ---
PT DISCHARGED PT DISCHARGED AT 1300. PT IN STABLE CONDITION WITH VSS. PT EDUCATED ON DC INSTRUCTIONS. PT DENIES ANY QUESTIONS. PT WHEELED OUT BY ESCORT & DRIVEN HOME BY .
--- NOTE | 2019-03-05 13:48 | NUR ---
Pt. waiting for discharge wisged pt. all the best while at home
== END 2019-03-05 13:09 | disposition home or self-care (01) | DRG 292 ==
LOC: ER 17:10 → MEDS 20:15 → ENPENDDIS 03-05 11:35 → MEDS 03-05 13:09
PROVIDERS: Emergency Medicine; Hospitalist; Nurse Practitioner Acute Care; ADMIT Internal Medicine
DX: I11.0 Hypertensive heart disease with heart failure (principal); J44.1 Chronic obstructive pulmonary disease with (acute) exacerbation; F11.20 Opioid dependence, uncomplicated; J96.11 Chronic respiratory failure with hypoxia; I50.33 Acute on chronic diastolic (congestive) heart failure; M06.9 Rheumatoid arthritis, unspecified; E03.9 Hypothyroidism, unspecified; E78.5 Hyperlipidemia, unspecified; F17.210 Nicotine dependence, cigarettes, uncomplicated; E11.9 Type 2 diabetes mellitus without complications; F41.1 Generalized anxiety disorder; F32.9 Major depressive disorder, single episode, unspecified; I45.10 Unspecified right bundle-branch block; Z99.81 Dependence on supplemental oxygen; G89.4 Chronic pain syndrome
CPT/HCPCS: 36415; 71046; 80048; 80053; 82947; 83690; 83735; 83880; 84100; 84145; 84484; 85025; 87486; 87581; 87633; 87798; 93005; 93010; 94640; 94760; 96374; 96375; 99284-25; 99285-25; J0360; J1650; J1940; J2405; J2930

== ENCOUNTER 2019-05-06 23:43 | Emergency (ER) | payer MEDICARE, OTHER ==
[~2019-05-06] VITALS: Ht 165.1 cm; Wt 61.2 kg
[~2019-05-06 23:43] MED LIST changes: +ALBU90OI INH; +DULERA 200 MCG/13 GM INH; +FURO40 PO; +LISI5 PO; +Oxycodone HCl20 M1 PO; +SERT50 PO; +SPIR25 PO; +Vistaril50 MG PO
[2019-05-07 00:14] LABS: BASOPHILS ABSOLUTE AUTO 0.04 K/mm3 (0.00-0.23); BASOPHILS PERCENT AUTO 1 % (0-2); EOSINOPHILS ABSOLUTE AUTO 0.05 K/mm3 (0.00-0.68); EOSINOPHILS PERCENT AUTO 1 % (0-6); Hematocrit 48.1 % (33.0-51.0); Hemoglobin 16.3 g/dL (11.5-16.0); IMMATURE GRAN ABSOLUTE AUTO 0.03 K/mm3 (0.00-0.10); IMMATURE GRAN PERCENT AUTO 0 % (0-1); LYMPHOCYTES ABSOLUTE AUTO 0.92 K/mm3 (0.84-5.20); LYMPHOCYTES PERCENT AUTO 13 % (21-46); MONOCYTES ABSOLUTE AUTO 0.44 K/mm3 (0.16-1.47); MONOCYTES PERCENT AUTO 6 % (4-13); Mean Corpuscular HGB 32.2 pg (26.0-34.0); Mean Corpuscular HGB Conc 33.9 g/dL (31.5-36.5); Mean Corpuscular Volume 95 fL (80-100); Mean Platelet Volume 10.4 fL (9.1-12.4); NEUTROPHILS ABSOLUTE AUTO 5.86 K/mm3 (1.96-9.15); NEUTROPHILS PERCENT AUTO 80 % (41-73); Platelet Count 230 K/mm3 (150-400); RDW Coefficient Variation 13.9 % (11.7-14.2); Red Blood Cell Count 5.06 M/mm3 (3.80-5.20); White Blood Cell Count 7.34 K/mm3 (4.00-11.30)
[2019-05-07 00:28] LABS: Albumin, Blood 3.2 g/dL (3.4-5.0); Albumin/Globulin Ratio 0.7 (0.8-1.8); Bilirubin, Total 0.6 mg/dL (0.1-1.0); Bun/Creatinine Ratio 15.1 (12.0-20.0); Calcium, Blood 9.1 mg/dL (8.5-10.1); Creatinine, Blood 0.99 mg/dL (0.40-1.00); Globulin, Blood 4.8 g/dL (2.2-4.0); Potassium, Blood 4.2 mmol/L (3.5-5.5); Troponin I 0.059 ng/mL (0.000-0.040)
[2019-05-07 01:51] LABS: Source, Urine Clean Catch
[2019-05-07 01:59] LABS: Bilirubin, Urine Neg (Neg); Blood, Urine 3+ (Neg); Glucose Qualitative, Urine Neg (Neg); Ketones, Urine Neg (Neg); Leukocyte Esterase, Urine Neg (Neg); Nitrite, Urine Neg (Neg); Protein, Urine 2+ (Neg); Urobilinogen, Urine NORM (Normal)
[2019-05-07 02:21] LABS: Appearance, Urine Clear (Clear); Bacteria Rare /hpf; Color, Urine Yellow (P-Yellow); Squamous Epithelial Cells Few /hpf (Few); White Blood Cells, Urine Rare /hpf (0-5)
== END 2019-05-07 03:22 | disposition home or self-care (01) ==
LOC: ER 23:43
PROVIDERS: Emergency Medicine
DX: R10.11 Right upper quadrant pain (principal); J44.9 Chronic obstructive pulmonary disease, unspecified; E11.9 Type 2 diabetes mellitus without complications; I11.0 Hypertensive heart disease with heart failure; I50.32 Chronic diastolic (congestive) heart failure; E03.9 Hypothyroidism, unspecified; Z79.899 Other long term (current) drug therapy
CPT/HCPCS: 71046; 80053; 81001; 83880; 84484; 85025; 93005; 93010; 99284-25; A9270-GY

== ENCOUNTER 2019-06-25 12:15 | Emergency (ER) | payer MEDICARE, OTHER ==
[~2019-06-25] VITALS: Ht 162.6 cm; Wt 77.1 kg
[2019-06-25 13:17] LABS: BASOPHILS ABSOLUTE AUTO 0.04 K/mm3 (0.00-0.23); BASOPHILS PERCENT AUTO 1 % (0-2); EOSINOPHILS ABSOLUTE AUTO 0.06 K/mm3 (0.00-0.68); EOSINOPHILS PERCENT AUTO 1 % (0-6); Hematocrit 47.4 % (33.0-51.0); Hemoglobin 15.6 g/dL (11.5-16.0); IMMATURE GRAN ABSOLUTE AUTO 0.02 K/mm3 (0.00-0.10); IMMATURE GRAN PERCENT AUTO 0 % (0-1); LYMPHOCYTES ABSOLUTE AUTO 1.17 K/mm3 (0.84-5.20); LYMPHOCYTES PERCENT AUTO 17 % (21-46); MONOCYTES ABSOLUTE AUTO 0.48 K/mm3 (0.16-1.47); MONOCYTES PERCENT AUTO 7 % (4-13); Mean Corpuscular HGB 30.8 pg (26.0-34.0); Mean Corpuscular HGB Conc 32.9 g/dL (31.5-36.5); Mean Corpuscular Volume 94 fL (80-100); Mean Platelet Volume 11.3 fL (9.1-12.4); NEUTROPHILS ABSOLUTE AUTO 5.21 K/mm3 (1.96-9.15); NEUTROPHILS PERCENT AUTO 75 % (41-73); Platelet Count 150 K/mm3 (150-400); RDW Coefficient Variation 14.5 % (11.7-14.2); RDW Standard Deviation 49.4 fL (35.1-46.3); Red Blood Cell Count 5.07 M/mm3 (3.80-5.20); White Blood Cell Count 6.98 K/mm3 (4.00-11.30)
[2019-06-25 13:37] LABS: Alanine Aminotransfer (ALT/SGP 29 U/L (12-78); Albumin, Blood 3.2 g/dL (3.4-5.0); Albumin/Globulin Ratio 0.7 (0.8-1.8); Alk Phos 80 U/L (50-136); Anion Gap 8 mmol/L (6-16); Aspartate Aminotrans (AST/SGOT 22 U/L (12-37); Blood Urea Nitrogen 22 mg/dL (8-24); Bun/Creatinine Ratio 23.8 (12.0-20.0); CO2, Blood 25 mmol/L (21-32); Calcium, Blood 8.8 mg/dL (8.5-10.1); Chloride, Blood 107 mmol/L (98-108); Creatinine, Blood 0.92 mg/dL (0.40-1.00); Globulin, Blood 4.4 g/dL (2.2-4.0); Glomerular Filtration Rate >60 (60-); Glucose, Blood 127 mg/dL (70-99); Potassium, Blood 3.9 mmol/L (3.5-5.5); Sodium, Blood 140 mmol/L (136-145); Total Protein, Blood 7.6 g/dL (6.4-8.2); Troponin I 0.067 ng/mL (0.000-0.040)
[2019-06-25 14:56] LABS: Source, Urine Clean Catch
[2019-06-25 15:06] LABS: Bilirubin, Urine Neg (Neg); Blood, Urine 1+ (Neg); Glucose Qualitative, Urine Neg (Neg); Ketones, Urine 1+ (Neg); Leukocyte Esterase, Urine 1+ (Neg); Nitrite, Urine Neg (Neg); Protein, Urine 1+ (Neg); Urobilinogen, Urine NORM (Normal)
[2019-06-25 15:23] LABS: Appearance, Urine Clear (Clear); Color, Urine Yellow (P-Yellow)
[2019-06-25 15:24] LABS: Bacteria Mod /hpf; Squamous Epithelial Cells Few /hpf (Few)
[2019-06-25] MEDS ORDERED: Macrobid 100 M100 MG PO (16:07)
== END 2019-06-25 16:30 | disposition home or self-care (01) ==
LOC: ER 12:15
PROVIDERS: Emergency Medicine
DX: N39.0 Urinary tract infection, site not specified (principal); J44.9 Chronic obstructive pulmonary disease, unspecified; M06.9 Rheumatoid arthritis, unspecified; I11.0 Hypertensive heart disease with heart failure; I50.9 Heart failure, unspecified; E03.9 Hypothyroidism, unspecified; E78.5 Hyperlipidemia, unspecified; E11.9 Type 2 diabetes mellitus without complications; F17.200 Nicotine dependence, unspecified, uncomplicated; Z79.899 Other long term (current) drug therapy
CPT/HCPCS: 36415; 71046; 80053; 81001; 83690; 83880; 84484; 85025; 87086; 93005; 93010; 99285-25

== ENCOUNTER 2019-10-26 13:19 | Emergency (ER) | payer MEDICARE, OTHER ==
[~2019-10-26] VITALS: Ht 165.1 cm; Wt 59.0 kg
[~2019-10-26 13:19] MED LIST changes: +Macrobid 100 M100 MG PO
[2019-10-26] MEDS ORDERED: LEVO-T175 MCG PO (13:29)
[2019-10-26] MEDS ORDERED: ESCI20 PO (13:30)
[2019-10-26] MEDS ORDERED: FENO67 PO (13:30)
[2019-10-26 15:27] LABS: Source, Urine Catheter
[2019-10-26 15:30] LABS: Bilirubin, Urine Neg (Neg); Blood, Urine 4+ (Neg); Color, Urine Yellow (P-Yellow); Glucose Qualitative, Urine Neg (Neg); Ketones, Urine 1+ (Neg); Leukocyte Esterase, Urine 1+ (Neg); Nitrite, Urine Neg (Neg); Protein, Urine 4+ (Neg); Specific Gravity, Urine 1.025 (1.003-1.022); Urobilinogen, Urine NORM (Normal)
[2019-10-26 15:35] LABS: BASOPHILS ABSOLUTE AUTO 0.02 K/mm3 (0.00-0.23); BASOPHILS PERCENT AUTO 0 % (0-2); EOSINOPHILS ABSOLUTE AUTO 0.02 K/mm3 (0.00-0.68); EOSINOPHILS PERCENT AUTO 0 % (0-6); Hematocrit 51.5 % (33.0-51.0); IMMATURE GRAN ABSOLUTE AUTO 0.01 K/mm3 (0.00-0.10); IMMATURE GRAN PERCENT AUTO 0 % (0-1); LYMPHOCYTES ABSOLUTE AUTO 0.92 K/mm3 (0.84-5.20); LYMPHOCYTES PERCENT AUTO 15 % (21-46); MONOCYTES ABSOLUTE AUTO 0.34 K/mm3 (0.16-1.47); MONOCYTES PERCENT AUTO 6 % (4-13); Mean Corpuscular HGB 32.6 pg (26.0-34.0); Mean Corpuscular Volume 99 fL (80-100); Mean Platelet Volume 10.3 fL (9.1-12.4); NEUTROPHILS ABSOLUTE AUTO 4.77 K/mm3 (1.96-9.15); NEUTROPHILS PERCENT AUTO 79 % (41-73); Platelet Count 181 K/mm3 (150-400); RDW Coefficient Variation 13.5 % (11.7-14.2); RDW Standard Deviation 49.5 fL (35.1-46.3); Red Blood Cell Count 5.22 M/mm3 (3.80-5.20); White Blood Cell Count 6.08 K/mm3 (4.00-11.30)
[2019-10-26 15:40] LABS: Appearance, Urine Hazy (Clear)
[2019-10-26 15:42] LABS: Bacteria Mod /hpf; Squamous Epithelial Cells Few /hpf (Few)
[2019-10-26 15:45] LABS: Hyaline Casts 0-2 /lpf (0-2)
[2019-10-26 15:57] LABS: Alanine Aminotransfer (ALT/SGP 14 U/L (12-78); Albumin, Blood 3.5 g/dL (3.4-5.0); Albumin/Globulin Ratio 0.7 (0.8-1.8); Alk Phos 86 U/L (50-136); Anion Gap 6 mmol/L (6-16); Aspartate Aminotrans (AST/SGOT 13 U/L (12-37); Bilirubin, Total 0.7 mg/dL (0.1-1.0); Blood Urea Nitrogen 17 mg/dL (8-24); Bun/Creatinine Ratio 19.4 (12.0-20.0); CO2, Blood 26 mmol/L (21-32); Calcium, Blood 9.1 mg/dL (8.5-10.1); Chloride, Blood 107 mmol/L (98-108); Creatinine, Blood 0.88 mg/dL (0.40-1.00); Glomerular Filtration Rate >60 (60-); Glucose, Blood 113 mg/dL (70-99); Potassium, Blood 4.2 mmol/L (3.5-5.5); Sodium, Blood 139 mmol/L (136-145); Total Protein, Blood 8.5 g/dL (6.4-8.2); Troponin I 0.057 ng/mL (0.000-0.040)
[2019-10-26 16:18] LABS: Influenza A Negative (NEGATIVE); Influenza B Positive (NEGATIVE)
[2019-10-26] MEDS ORDERED: LORTAB 10 MG-3473 ML PO (16:42)
[2019-10-26] MEDS ORDERED: ONDA4ODT MM (16:42)
== END 2019-10-26 17:13 | disposition home or self-care (01) ==
LOC: ER 13:19
PROVIDERS: Emergency Medicine
DX: J10.1 Influenza due to other identified influenza virus with other respiratory manifestations (principal); J44.1 Chronic obstructive pulmonary disease with (acute) exacerbation; I10 Essential (primary) hypertension; E11.9 Type 2 diabetes mellitus without complications; F17.210 Nicotine dependence, cigarettes, uncomplicated; Z79.899 Other long term (current) drug therapy; Z79.51 Long term (current) use of inhaled steroids
CPT/HCPCS: 36415; 71045; 80053; 81001; 83690; 84484; 85025; 87086; 87804; 93005; 93010; 96361; 96374; 96375; 96376; 99284-25; A9270-GY; J1885; J2405; J3010; J7030

== ENCOUNTER 2019-11-17 22:39 | Observation (INO) | payer MEDICARE, OTHER ==
[~2019-11-17] VITALS: Ht 162.6 cm; Wt 63.5 kg
[~2019-11-17 22:39] MED LIST changes: +ESCI20 PO; +FENO67 PO; +LORTAB 10 MG-3473 ML PO; +ONDA4ODT MM
[2019-11-17 22:57] LABS: BASOPHILS ABSOLUTE AUTO 0.03 K/mm3 (0.00-0.23); BASOPHILS PERCENT AUTO 0 % (0-2); EOSINOPHILS ABSOLUTE AUTO 0.03 K/mm3 (0.00-0.68); EOSINOPHILS PERCENT AUTO 0 % (0-6); Hematocrit 47.1 % (33.0-51.0); Hemoglobin 16.1 g/dL (11.5-16.0); IMMATURE GRAN ABSOLUTE AUTO 0.05 K/mm3 (0.00-0.10); IMMATURE GRAN PERCENT AUTO 0 % (0-1); LYMPHOCYTES ABSOLUTE AUTO 0.83 K/mm3 (0.84-5.20); LYMPHOCYTES PERCENT AUTO 7 % (21-46); MONOCYTES ABSOLUTE AUTO 0.67 K/mm3 (0.16-1.47); MONOCYTES PERCENT AUTO 6 % (4-13); Mean Corpuscular HGB 32.5 pg (26.0-34.0); Mean Corpuscular HGB Conc 34.2 g/dL (31.5-36.5); Mean Corpuscular Volume 95 fL (80-100); Mean Platelet Volume 10.8 fL (9.1-12.4); NEUTROPHILS ABSOLUTE AUTO 9.82 K/mm3 (1.96-9.15); NEUTROPHILS PERCENT AUTO 86 % (41-73); Platelet Count 174 K/mm3 (150-400); RDW Coefficient Variation 13.6 % (11.7-14.2); RDW Standard Deviation 48.2 fL (35.1-46.3); Red Blood Cell Count 4.95 M/mm3 (3.80-5.20); White Blood Cell Count 11.43 K/mm3 (4.00-11.30)
[2019-11-17 23:15] LABS: Alanine Aminotransfer (ALT/SGP 12 U/L (12-78); Albumin, Blood 2.9 g/dL (3.4-5.0); Albumin/Globulin Ratio 0.5 (0.8-1.8); Alk Phos 93 U/L (50-136); Anion Gap 5 mmol/L (6-16); Aspartate Aminotrans (AST/SGOT 10 U/L (12-37); Blood Urea Nitrogen 17 mg/dL (8-24); Bun/Creatinine Ratio 19.3 (12.0-20.0); CO2, Blood 24 mmol/L (21-32); Calcium, Blood 8.9 mg/dL (8.5-10.1); Chloride, Blood 106 mmol/L (98-108); Creatinine, Blood 0.88 mg/dL (0.40-1.00); Globulin, Blood 5.4 g/dL (2.2-4.0); Glomerular Filtration Rate >60 (60-); Glucose, Blood 151 mg/dL (70-99); Sodium, Blood 135 mmol/L (136-145); Total Protein, Blood 8.3 g/dL (6.4-8.2)
[2019-11-18 00:05] LABS: Troponin I 0.037 ng/mL (0.000-0.040)
[2019-11-18 00:06] LABS: PCO2 Arterial 38.2 mmHg (35-45); PO2 Arterial 60.3 mmHg (80-100); pH Blood Arterial 7.43 (7.35-7.45)
[2019-11-18 01:59] LABS: Source, Urine Clean Catch
[2019-11-18 02:01] LABS: Bilirubin, Urine Neg (Neg); Blood, Urine 4+ (Neg); Glucose Qualitative, Urine Neg (Neg); Ketones, Urine Neg (Neg); Leukocyte Esterase, Urine Neg (Neg); Nitrite, Urine Neg (Neg); Protein, Urine 3+ (Neg); Urobilinogen, Urine NORM (Normal); pH, Urine 6.5 (5.0-8.0)
[2019-11-18 02:05] LABS: Appearance, Urine Clear (Clear); Color, Urine Yellow (P-Yellow)
[2019-11-18 02:11] LABS: Bacteria Mod /hpf; Squamous Epithelial Cells Few /hpf (Few)
--- NOTE | 2019-11-18 06:42 | NUR ---
74 YR OLD FEMALE ADMITTED TO FLOOR FROM THE ED WITH DX OF PNEUMONIA. IV ANTIBIOTICS ADMINISTERED - SEE MAR FOR DETAILS. HOB ELEVATED. LUNG SOUNDS DIMINISHED PER AUSCULTATION. INTERMITTENT COMPLAINTS OF HOT AND COLD. WARM BLANKET APPLIED. CURRENTLY SLEEPING QUIETLY. WAS ORIENTED TO BED CONTROL AND WALL LIGHT. CALL LIGHT IN REACH.
--- NOTE | 2019-11-18 17:42 | NUR ---
PATIENT IS ALERT AND ORIENTED AND COOPERATIVE WITH CARE. SHE HAS HAD A GLASS OF ORANGE JUICE, SOME WATER, AN ENSURE AND VANILLA ICE CREAM TODAY. HER IS AT THE BEDSIDE NOW. SHE HAS COMPLAINED OF PAIN THROUGHOUT THE DAY, TREATED PER EMAR. HER OXYGEN SATURATIONS WERE IN THE 80'S THIS MORNING, THE RT PLACED HER ON 2L O2 VIA NC. HER OXYGEN SATURATION IS NOW 94% ON 2L O2 VIA NC. BREATHING TREATMENTS PRN. SHE WAS SHOWERED TODAY. SHE IS A 1PA TO THE [facility] WITH GAITBELT. SHE HAS COMPLAINED OF CHILLS. WILL CONTINUE TO MONITOR.
--- NOTE | 2019-11-19 02:55 | NUR ---
visited pt yesterday, left around HS. IV antibiotics administered - see JAN for details. Analgesics administered for c/o pain. Currently resting quietly. Call light in reach. Will continue to monitor.
[2019-11-19 05:13] LABS: BASOPHILS ABSOLUTE AUTO 0.03 K/mm3 (0.00-0.23); BASOPHILS PERCENT AUTO 1 % (0-2); EOSINOPHILS ABSOLUTE AUTO 0.07 K/mm3 (0.00-0.68); EOSINOPHILS PERCENT AUTO 1 % (0-6); Hematocrit 41.2 % (33.0-51.0); Hemoglobin 13.5 g/dL (11.5-16.0); IMMATURE GRAN ABSOLUTE AUTO 0.01 K/mm3 (0.00-0.10); IMMATURE GRAN PERCENT AUTO 0 % (0-1); LYMPHOCYTES PERCENT AUTO 22 % (21-46); MONOCYTES ABSOLUTE AUTO 0.42 K/mm3 (0.16-1.47); MONOCYTES PERCENT AUTO 8 % (4-13); Mean Corpuscular HGB 31.8 pg (26.0-34.0); Mean Corpuscular HGB Conc 32.8 g/dL (31.5-36.5); Mean Corpuscular Volume 97 fL (80-100); Mean Platelet Volume 10.8 fL (9.1-12.4); NEUTROPHILS PERCENT AUTO 68 % (41-73); Platelet Count 178 K/mm3 (150-400); RDW Coefficient Variation 13.7 % (11.7-14.2); RDW Standard Deviation 48.8 fL (35.1-46.3); Red Blood Cell Count 4.25 M/mm3 (3.80-5.20); White Blood Cell Count 5.03 K/mm3 (4.00-11.30)
[2019-11-19 05:37] LABS: Albumin, Blood 2.5 g/dL (3.4-5.0); Anion Gap 7 mmol/L (6-16); Blood Urea Nitrogen 23 mg/dL (8-24); Bun/Creatinine Ratio 24.1 (12.0-20.0); CO2, Blood 26 mmol/L (21-32); Calcium, Blood 8.7 mg/dL (8.5-10.1); Chloride, Blood 107 mmol/L (98-108); Creatinine, Blood 0.95 mg/dL (0.40-1.00); Glomerular Filtration Rate >60 (60-); Glucose, Blood 100 mg/dL (70-99); Phosphorus, Blood 3.5 mg/dL (2.5-4.9); Potassium, Blood 4.4 mmol/L (3.5-5.5); Sodium, Blood 140 mmol/L (136-145)
--- NOTE | 2019-11-19 18:34 | NUR ---
Shift Summary A/O, cooperative with care. Medicated for pain x 2 per EMAR, otherwise, no other complaints. No acute concerns. Will continue to monitor until report given to oncoming Rn.
--- NOTE | 2019-11-20 04:39 | NUR ---
MANAGER OF PURCHASING SUMMARY PT A/O X4. PT COMPLAINS OF PAIN IN HANDS AND FEET. OXYCODONE 4 TABS OF 5 MG GIVEN X2 THIS SHIFT SO FAR. TYLENOL 1,000MG ALSO GIVEN PT TO HELP WITH PAIN PER PT REQUEST. PT RE-ASSESSED AND SAID "PAIN IS STARTING TO GO DOWN". PT HAS NOT GOTTEN MUCH SLEEP TONIGHT. NO ACUTE CHANGES. VSS, WILL CONTINUE TO MONITOR. POSSIBLE DISCHARGE TO HOME TODAY.
[2019-11-20 05:06] LABS: BASOPHILS ABSOLUTE AUTO 0.03 K/mm3 (0.00-0.23); BASOPHILS PERCENT AUTO 1 % (0-2); EOSINOPHILS ABSOLUTE AUTO 0.14 K/mm3 (0.00-0.68); EOSINOPHILS PERCENT AUTO 2 % (0-6); Hematocrit 43.2 % (33.0-51.0); IMMATURE GRAN ABSOLUTE AUTO 0.03 K/mm3 (0.00-0.10); IMMATURE GRAN PERCENT AUTO 1 % (0-1); LYMPHOCYTES ABSOLUTE AUTO 1.17 K/mm3 (0.84-5.20); LYMPHOCYTES PERCENT AUTO 20 % (21-46); MONOCYTES ABSOLUTE AUTO 0.54 K/mm3 (0.16-1.47); MONOCYTES PERCENT AUTO 9 % (4-13); Mean Corpuscular HGB 31.5 pg (26.0-34.0); Mean Corpuscular HGB Conc 32.4 g/dL (31.5-36.5); Mean Corpuscular Volume 97 fL (80-100); Mean Platelet Volume 10.5 fL (9.1-12.4); NEUTROPHILS PERCENT AUTO 68 % (41-73); Platelet Count 212 K/mm3 (150-400); RDW Coefficient Variation 13.4 % (11.7-14.2); RDW Standard Deviation 48.3 fL (35.1-46.3); Red Blood Cell Count 4.45 M/mm3 (3.80-5.20); White Blood Cell Count 5.91 K/mm3 (4.00-11.30)
[2019-11-20 05:21] LABS: Albumin, Blood 2.8 g/dL (3.4-5.0); Anion Gap 5 mmol/L (6-16); Blood Urea Nitrogen 21 mg/dL (8-24); CO2, Blood 27 mmol/L (21-32); Chloride, Blood 105 mmol/L (98-108); Glomerular Filtration Rate 57 (60-); Glucose, Blood 103 mg/dL (70-99); Phosphorus, Blood 3.3 mg/dL (2.5-4.9); Potassium, Blood 5.3 mmol/L (3.5-5.5); Sodium, Blood 137 mmol/L (136-145)
--- NOTE | 2019-11-20 07:11 | NUR ---
CALLED DR ROSALES- PT ON TAMIFLU, WAS POSSITIVE FOR FLU 2 WEEKS AGO. PER PT HAS PNEUMONIA AND TAMIFLU WAS ORDERED TO DC. PT DOES NOT NEED IOS FOR R/O FLU PER INFECTION CONTROL.
--- NOTE | 2019-11-20 13:31 | NUR ---
Pt. is inn bed resting she reports doing fine encouraged pt. and offered prayers .
--- NOTE | 2019-11-20 17:32 | NUR ---
DISCHARGE NOTE- PT WAS GIVEN VERBAL AND WRITTEN DISCHARGE INSTRUCTIONS AND ACKNOWLEDGED UNDERSTANDING OF THEM. NO FURTHER QUESTIONS AT THE TIME OF DISCHARGE. PT ESCORTED OUT VIA WC BY THE WIRE BRUSHER TO PT ENTRANCE, WITH HER AT HER SIDE. PT HAD NO IV TO DC AT THE TIME OF DISCHARGE.
== END 2019-11-20 15:44 | disposition home or self-care (01) ==
LOC: ER 22:39 → MEDS 22:41 → ER 11-18 03:31 → MEDS 11-18 03:31
PROVIDERS: Emergency Medicine; Internal Medicine Endocrinology, Diabetes & Metabolism; ADMIT Family Medicine
DX: J15.4 Pneumonia due to other streptococci (principal); N63.20 Unspecified lump in the left breast, unspecified quadrant; N63.10 Unspecified lump in the right breast, unspecified quadrant; J96.01 Acute respiratory failure with hypoxia; E11.9 Type 2 diabetes mellitus without complications; I10 Essential (primary) hypertension; G89.4 Chronic pain syndrome; J44.9 Chronic obstructive pulmonary disease, unspecified; E04.1 Nontoxic single thyroid nodule; E03.9 Hypothyroidism, unspecified; E78.5 Hyperlipidemia, unspecified; F17.210 Nicotine dependence, cigarettes, uncomplicated; F41.9 Anxiety disorder, unspecified; F32.9 Major depressive disorder, single episode, unspecified; E66.3 Overweight; Z79.899 Other long term (current) drug therapy; Z68.24 Body mass index [BMI] 24.0-24.9, adult
CPT/HCPCS: 36415; 36600; 71046; 71260; 76536; 80053; 80069; 81001; 82550; 82803; 83605; 83690; 84145; 84443; 84484; 85025; 87040; 87070; 87086; 87186; 87205; 93005; 93010; 94640; 94760; 96361; 96372; 96374-59; 96375; 96376; 99285-25; A9270; A9270-GY; G0378; J0456; J0696; J1650; J2405; J7030; J7050; Q9967

== ENCOUNTER 2020-04-29 22:26 | Emergency (ER) | payer MEDICARE, OTHER ==
[~2020-04-29] VITALS: Ht 165.1 cm; Wt 61.2 kg
[2020-04-29] MEDS ORDERED: Metoprolol Tar100 MG PO (22:34)
[2020-04-29] MEDS ORDERED: HYDHCL25 PO (22:35)
== END 2020-04-30 00:13 | disposition home or self-care (01) ==
LOC: ER 22:26
DX: S29.011A Strain of muscle and tendon of front wall of thorax, initial encounter (principal); J44.9 Chronic obstructive pulmonary disease, unspecified; E11.9 Type 2 diabetes mellitus without complications; I10 Essential (primary) hypertension; F17.210 Nicotine dependence, cigarettes, uncomplicated; Z79.899 Other long term (current) drug therapy; X50.1XXA Overexertion from prolonged static or awkward postures, initial encounter
CPT/HCPCS: 96372; 99283; J1885

== ENCOUNTER 2020-07-04 21:58 | Inpatient (IN) | payer MEDICARE, OTHER ==
[~2020-07-04] VITALS: Ht 162.6 cm; Wt 65.9 kg
[~2020-07-04 21:58] MED LIST changes: +Metoprolol Tar100 MG PO
[2020-07-04 22:50] LABS: BASOPHILS ABSOLUTE AUTO 0.03 K/mm3 (0.00-0.23); BASOPHILS PERCENT AUTO 0 % (0-2); EOSINOPHILS ABSOLUTE AUTO 0.01 K/mm3 (0.00-0.68); EOSINOPHILS PERCENT AUTO 0 % (0-6); Hematocrit 53.1 % (33.0-51.0); Hemoglobin 17.6 g/dL (11.5-16.0); IMMATURE GRAN ABSOLUTE AUTO 0.03 K/mm3 (0.00-0.10); IMMATURE GRAN PERCENT AUTO 0 % (0-1); LYMPHOCYTES ABSOLUTE AUTO 1.03 K/mm3 (0.84-5.20); LYMPHOCYTES PERCENT AUTO 11 % (21-46); MONOCYTES ABSOLUTE AUTO 0.91 K/mm3 (0.16-1.47); MONOCYTES PERCENT AUTO 10 % (4-13); Mean Corpuscular HGB 32.2 pg (26.0-34.0); Mean Corpuscular HGB Conc 33.1 g/dL (31.5-36.5); Mean Corpuscular Volume 97 fL (80-100); Mean Platelet Volume 10.6 fL (9.1-12.4); NEUTROPHILS ABSOLUTE AUTO 7.61 K/mm3 (1.96-9.15); NEUTROPHILS PERCENT AUTO 79 % (41-73); Platelet Count 310 K/mm3 (150-400); RDW Coefficient Variation 13.4 % (11.7-14.2); RDW Standard Deviation 49.1 fL (35.1-46.3); Red Blood Cell Count 5.47 M/mm3 (3.80-5.20); White Blood Cell Count 9.62 K/mm3 (4.00-11.30)
[2020-07-04 23:00] LABS: Source, Urine Clean Catch
[2020-07-04 23:04] LABS: Albumin, Blood 3.2 g/dL (3.4-5.0); Albumin/Globulin Ratio 0.5 (0.8-1.8); Bilirubin, Total 0.6 mg/dL (0.1-1.0); Calcium, Blood 8.8 mg/dL (8.5-10.1); Globulin, Blood 5.9 g/dL (2.2-4.0); Magnesium, Blood 2.7 mg/dL (1.6-2.4); Potassium, Blood 3.6 mmol/L (3.5-5.5); Total Protein, Blood 9.1 g/dL (6.4-8.2); Troponin I 0.062 ng/mL (0.000-0.040)
[2020-07-04 23:04] LABS: Appearance, Urine Clear (Clear); Bilirubin, Urine Neg (Neg); Blood, Urine 5+ (Neg); Color, Urine Yellow (P-Yellow); Glucose Qualitative, Urine Neg (Neg); Ketones, Urine Neg (Neg); Leukocyte Esterase, Urine Neg (Neg); Nitrite, Urine Neg (Neg); Protein, Urine 3+ (Neg); Specific Gravity, Urine 1.015 (1.003-1.022); Urobilinogen, Urine NORM (Normal)
[2020-07-04 23:10] LABS: Amorphous Light (0-Heavy); Bacteria Few /hpf; Squamous Epithelial Cells Not Seen /hpf (Few); White Blood Cells, Urine 0-2 /hpf (0-5)
--- NOTE | 2020-07-05 05:16 | NUR ---
SHIFT SUMMARY- PT. NEW ADMIT FROM ED, A&OX2 WITH INTERMITTENT CONFUSION. PT. TEMP WNL, HAS MOIST NON-PRODUCTIVE COUGH. WEAK AND GAIT UNSTEADY. PT. ON ISOLATION FOR R/O COVID, REFUSED RAPID COVID TEST. CHARGE NURSE GAYE BROCK MADE AWARE. DISCUSSED WITH PT. IMPORTANCE OF TEST FOR FURTHER TREATMENT. VERBALIZED UNDERSTANDING, BUT STILL REFUSING RESP PANEL PCR. PT. RECEIVING IV FLUIDS, SCHEDULED MEDS GIVEN W/O DIFFICULTY. DENIES ANY PAIN OR DISCOMFORT. PT. APPEARS TO BE RESTING COMFORTABLY IN BED, NO APPARENT DISTRESS NOTED. CALL LIGHT WITHIN REACH. SIDE RAILS UPX2, AND BED ALARM ON FOR SAFETY. WILL CONT TO MONITOR.
--- NOTE | 2020-07-05 10:16 | NUR ---
Pt. stated "do not touch me", and refused echocardiogram.
[2020-07-05 15:28] LABS: BASOPHILS ABSOLUTE AUTO 0.03 K/mm3 (0.00-0.23); BASOPHILS PERCENT AUTO 0 % (0-2); EOSINOPHILS ABSOLUTE AUTO 0.02 K/mm3 (0.00-0.68); EOSINOPHILS PERCENT AUTO 0 % (0-6); Hematocrit 49.8 % (33.0-51.0); Hemoglobin 16.6 g/dL (11.5-16.0); IMMATURE GRAN ABSOLUTE AUTO 0.04 K/mm3 (0.00-0.10); IMMATURE GRAN PERCENT AUTO 0 % (0-1); LYMPHOCYTES ABSOLUTE AUTO 1.17 K/mm3 (0.84-5.20); LYMPHOCYTES PERCENT AUTO 11 % (21-46); MONOCYTES ABSOLUTE AUTO 0.94 K/mm3 (0.16-1.47); MONOCYTES PERCENT AUTO 9 % (4-13); Mean Corpuscular HGB 32.4 pg (26.0-34.0); Mean Corpuscular HGB Conc 33.3 g/dL (31.5-36.5); Mean Corpuscular Volume 97 fL (80-100); Mean Platelet Volume 10.1 fL (9.1-12.4); NEUTROPHILS ABSOLUTE AUTO 8.48 K/mm3 (1.96-9.15); NEUTROPHILS PERCENT AUTO 79 % (41-73); Platelet Count 270 K/mm3 (150-400); RDW Coefficient Variation 13.4 % (11.7-14.2); RDW Standard Deviation 48.1 fL (35.1-46.3); Red Blood Cell Count 5.13 M/mm3 (3.80-5.20); White Blood Cell Count 10.68 K/mm3 (4.00-11.30)
[2020-07-05 15:49] LABS: Albumin, Blood 2.9 g/dL (3.4-5.0); Albumin/Globulin Ratio 0.5 (0.8-1.8); Bilirubin, Total 0.6 mg/dL (0.1-1.0); Bun/Creatinine Ratio 33.9 (12.0-20.0); Calcium, Blood 8.4 mg/dL (8.5-10.1); Creatinine, Blood 0.97 mg/dL (0.40-1.00); Globulin, Blood 5.4 g/dL (2.2-4.0); Potassium, Blood 3.6 mmol/L (3.5-5.5); Total Protein, Blood 8.3 g/dL (6.4-8.2)
[2020-07-05 15:51] LABS: CPK Creatine Kinase 42 U/L (26-193)
[2020-07-05 17:49] LABS: Adenovirus Not Detected (NOT DETECT); Bordetella pertussis Not Detected (NOT DETECT); Chlamydophila pneumoniae Not Detected (NOT DETECT); Coronavirus 229E Not Detected (NOT DETECT); Coronavirus HKU1 Not Detected (NOT DETECT); Coronavirus NL63 Not Detected (NOT DETECT); Coronavirus OC43 Not Detected (NOT DETECT); Human Metapneumovirus Not Detected (NOT DETECT); Human Rhinovirus/Enterovirus Not Detected (NOT DETECT); Influenza A/2009-H1 Not Detected (NOT DETECT); Influenza A/H1 Not Detected (NOT DETECT); Influenza A/H3 Not Detected (NOT DETECT); Influenza B Not Detected (NOT DETECT); Mycoplasma pneumoniae Not Detected (NOT DETECT); Parainfluenza Virus 1 Not Detected (NOT DETECT); Parainfluenza Virus 2 Not Detected (NOT DETECT); Parainfluenza Virus 3 Not Detected (NOT DETECT); Parainfluenza Virus 4 Not Detected (NOT DETECT); Respiratory Syncytial Virus Not Detected (NOT DETECT)
--- NOTE | 2020-07-06 05:33 | NUR ---
security shift supervisor summary Pt A&o x2 seeming confused at times. pt reporting chest pain after coughing and was medicated per jan at 0000. pt denied any relief however slept the rest of the night with a decrease coughing. pt's systolic bp in 140's at the start of the shift and the 150's at the end of the night so hydralazine was held per jan instructions. lung sound were wheezes at bilateral upper lobes and dimminished throughout. pt is still resting quietly with call light in reach and bed alarm on.
--- NOTE | 2020-07-06 11:23 | NUR ---
Pt. is doing much betternencouraged pt and offered prayers.
[2020-07-07 05:48] LABS: BASOPHILS ABSOLUTE AUTO 0.01 K/mm3 (0.00-0.23); BASOPHILS PERCENT AUTO 0 % (0-2); EOSINOPHILS PERCENT AUTO 0 % (0-6); Hematocrit 49.3 % (33.0-51.0); Hemoglobin 16.2 g/dL (11.5-16.0); IMMATURE GRAN ABSOLUTE AUTO 0.04 K/mm3 (0.00-0.10); IMMATURE GRAN PERCENT AUTO 1 % (0-1); LYMPHOCYTES ABSOLUTE AUTO 0.62 K/mm3 (0.84-5.20); LYMPHOCYTES PERCENT AUTO 8 % (21-46); MONOCYTES ABSOLUTE AUTO 0.11 K/mm3 (0.16-1.47); MONOCYTES PERCENT AUTO 1 % (4-13); Mean Corpuscular HGB 31.8 pg (26.0-34.0); Mean Corpuscular HGB Conc 32.9 g/dL (31.5-36.5); Mean Corpuscular Volume 97 fL (80-100); Mean Platelet Volume 10.5 fL (9.1-12.4); NEUTROPHILS ABSOLUTE AUTO 6.96 K/mm3 (1.96-9.15); NEUTROPHILS PERCENT AUTO 90 % (41-73); Platelet Count 251 K/mm3 (150-400); RDW Coefficient Variation 13.2 % (11.7-14.2); RDW Standard Deviation 47.8 fL (35.1-46.3); Red Blood Cell Count 5.09 M/mm3 (3.80-5.20); White Blood Cell Count 7.74 K/mm3 (4.00-11.30)
--- NOTE | 2020-07-07 05:52 | NUR ---
PORCELAIN ENAMEL LABORER SUMMARY NO ACUTE CHANGES THIS SHIFT. PT AAOX3, FORGETFUL AT TIMES. PT CAN BE VERY IRRITABLE AT TIMES WITH STAFF FOR NO REASON. PT DOESN'T SEEM TO HAVE ANY INTEREST IN HELPING HERSELF AND MOSTLY PREFERS TO LAY IN BED EXCEPT TO WALK TO THE BATHROOM. GAVE PRN HYDRALAZINE AT START OF SHIFT FOR SBP 160'S, NOW 140'S THIS AM. MEDICATED FOR PAIN WITH SCHEDULED OXYCODONE. PT HAS SLEPT MOST OF THE NIGHT. VSS, WILL CONTINUE TO MONITOR.
[2020-07-07 06:03] LABS: Alanine Aminotransfer (ALT/SGP 16 U/L (12-78); Albumin, Blood 2.9 g/dL (3.4-5.0); Albumin/Globulin Ratio 0.5 (0.8-1.8); Alk Phos 77 U/L (50-136); Anion Gap 7 mmol/L (6-16); Aspartate Aminotrans (AST/SGOT 10 U/L (12-37); Bilirubin, Total 0.6 mg/dL (0.1-1.0); Blood Urea Nitrogen 25 mg/dL (8-24); Bun/Creatinine Ratio 28.5 (12.0-20.0); CO2, Blood 20 mmol/L (21-32); Calcium, Blood 8.6 mg/dL (8.5-10.1); Chloride, Blood 109 mmol/L (98-108); Creatinine, Blood 0.88 mg/dL (0.40-1.00); Globulin, Blood 5.3 g/dL (2.2-4.0); Glomerular Filtration Rate >60 (60-); Glucose, Blood 155 mg/dL (70-99); Magnesium, Blood 2.6 mg/dL (1.6-2.4); Potassium, Blood 4.2 mmol/L (3.5-5.5); Sodium, Blood 136 mmol/L (136-145); Total Protein, Blood 8.2 g/dL (6.4-8.2)
--- NOTE | 2020-07-07 13:30 | NUR ---
Pt. lying in bed resting and doing muchbetter offered prayers and blesseins
--- NOTE | 2020-07-07 17:34 | NUR ---
SUMM- PT A/O X3, SLEEPY AND STATES DECERASED ENERGY AND GEN UNDER THE WEATHER, BUT FEELING BETTER THAN PREVIOUS DAYS. DECLINED PHYSICAL THERAPY RELATED TO WEAKNESS. IS ABLE TO AMBULATE SBA SLOW WITH ADQ STRENGTH TO THE BATHROOM. VOIDING. HAD NAUSEA THIS AM AND MEDICATED WITH ZOFRAN WITH MIN REIELF. STILL DECLINED MOST FOOD, BUT TOLERATED A MILK SHAKE THIS PM. CALLED DR OWENS AND INFORMED HIM OF PT'S STATED CHRONIC PAIN AND STATES 5MG OXY Q8 ISNT COVERING IT. STATES SHE USUALLY TAKES 20MG TABS 5X DAILY. INCREASED AMOUNT TO 10MG Q8. AT THE BEDSIDE FOR SUPPORT. WILL REPORT TO JUNG BROCK.
--- NOTE | 2020-07-08 07:54 | NUR ---
SHIFT SUMMARY AOX2/3-CONFUSED TO DATE & SITUATION. FOLLOWS DIRECTIONS. ANSWERS YES/NO QUESTIONS APPROPRIATE. REPORTS NAUSEA, MEDICATED 1X W/ZOFRAN, NO EMESIS NOTED. DENIES DYSPNEA. LUNGS HAVE EXPIRATORY WHEEZES T/O. E/U RESPIRATIONS. SPO2 >90% ON RA. REPORTS 8/10 PAIN IN ABD & LEGS, MEDICATED W/SCHEDULED ROXICODONE. LAST NIGHT PT STATED SHE IS WORRIED HER GRANDSONS ARE GOING TO "SNEAK INTO THE HOSPITAL" TO HIT HER, STATES SHE HAD TO CALL THE POLICE ON HER GRANDSONS BEFORE FOR BEATING UP THEIR GRANDFATHER. APPEARED VERY WORRIED ABOUT THIS & TOLD ME TO INFORM ALL STAFF & TO MONITOR THE HALLS FOR THE GRANDKIDS. I REASURRED PT A COUPLE TIMES THAT NO ONE WAS ABLE TO "SNEAK" INTO THE HOSPITAL & WE WOULD KEEP AN EYE OUT FOR GRANDKIDS. PT WAS ABLE TO GET REST T/O NIGHT. CALL LIGHT IN REACH.
--- NOTE | 2020-07-08 16:44 | NUR ---
Shift Summary A/Ox2 to self, family, and place. Thought it was February, but does know year. 1P SBA c FWW. Follows instructions well. has been at the bedside for most of the day. Patient went out for a stroll outside and in hallway via w/c with . Discussed last night's episode of extreme worry about grandsons entering the hospital and harming patient with her Emmanuel. According to Emmanuel, patient has been having moments of forgetfullness and it seems "she has been having dementia like symptoms lately". Emmanuel did not appear to be concerned asking staff to "just go with it." Patient thought she had seen what appeared to be her grandson in the parking lot of the hospital last night which triggered her fear. C/O 07/29 extremen headache stating "I've never had a headache this bad before." Medicated per EMAR with minimal relief. Patient has been cooperative with care and pleasant to have. Worked with physical therapy today, postponed occupational therapy session. No other acute changes, will continue to monitor.
--- NOTE | 2020-07-09 03:36 | NUR ---
SHIFT SUMMARY: PT IS ALERT AND ORIENTED. PT IS CALM AND COOPERATIVE WITH CARE. PT USES TRANSFERS INDEPENDENTLY, USES AN ELECTRIC W/C TO TRAVEL DISTANCE. PT WENT OUTSIDE JUST PRIOR TO SHIFT CHANGE, WAS GONE FOR AN EXTENDED PERIOD OF TIME, PT WAS INSTRUCTED TO NOT BE GONE FOR SO LONG. PT REPORTS CHRONIC BACK PAIN, MEDICATING PER EMAR. PT REPORTS NAUSEA ON ONE OCCASION, GAVE PRN ZOFRAN. PT DENIES VOMITING, AND SOB. NO ACUTE CHANGES OR COMPLICATIONS THIS SHIFT. BED IN LOW POSITION, CALL LIGHT WITHIN REACH. WILL CONINTUE TO MONITOR.
[2020-07-09 05:23] LABS: BASOPHILS ABSOLUTE AUTO 0.02 K/mm3 (0.00-0.23); BASOPHILS PERCENT AUTO 0 % (0-2); EOSINOPHILS PERCENT AUTO 0 % (0-6); Hematocrit 48.7 % (33.0-51.0); Hemoglobin 16.2 g/dL (11.5-16.0); IMMATURE GRAN ABSOLUTE AUTO 0.07 K/mm3 (0.00-0.10); IMMATURE GRAN PERCENT AUTO 1 % (0-1); LYMPHOCYTES ABSOLUTE AUTO 1.13 K/mm3 (0.84-5.20); LYMPHOCYTES PERCENT AUTO 9 % (21-46); MONOCYTES ABSOLUTE AUTO 0.37 K/mm3 (0.16-1.47); MONOCYTES PERCENT AUTO 3 % (4-13); Mean Corpuscular HGB 32.3 pg (26.0-34.0); Mean Corpuscular HGB Conc 33.3 g/dL (31.5-36.5); Mean Corpuscular Volume 97 fL (80-100); NEUTROPHILS ABSOLUTE AUTO 10.54 K/mm3 (1.96-9.15); NEUTROPHILS PERCENT AUTO 87 % (41-73); Platelet Count 285 K/mm3 (150-400); RDW Coefficient Variation 13.2 % (11.7-14.2); RDW Standard Deviation 47.4 fL (35.1-46.3); Red Blood Cell Count 5.02 M/mm3 (3.80-5.20); White Blood Cell Count 12.13 K/mm3 (4.00-11.30)
[2020-07-09 05:44] LABS: Bun/Creatinine Ratio 38.6 (12.0-20.0); Calcium, Blood 8.7 mg/dL (8.5-10.1); Creatinine, Blood 1.01 mg/dL (0.40-1.00); Potassium, Blood 4.7 mmol/L (3.5-5.5)
--- NOTE | 2020-07-09 07:52 | NUR ---
NO IV ACCESS L/M ON DR. DE LA FUENTE'S PHONE RE PATIENT IV LEAKING AND PATIENT REFUSING ANOTHER IV START. REQUEST FOR PO REPLACEMENTS FOR IV CEFTRIAXONE AND IV STEROID.
[2020-07-09] MEDS ORDERED: ACET325 PO (12:14)
[2020-07-09] MEDS ORDERED: AIRDUO RESPICL1 EAC4 INH (12:15)
[2020-07-09] MEDS ORDERED: CEFD300 PO (12:15)
[2020-07-09] MEDS ORDERED: ALBU90OI INH (12:15)
[2020-07-09] MEDS ORDERED: Prinivil10 MG PO (12:16)
[2020-07-09] MEDS ORDERED: ROXICODONE5 MG PO (12:17)
[2020-07-09] MEDS ORDERED: Prednisone20 MG PO (12:18)
[2020-07-09] MEDS ORDERED: ONDA4 PO (12:42)
--- NOTE | 2020-07-09 13:20 | NUR ---
Discharge Summary A/Ox2-3, discharging to home. Patient went outside with mobile scooter to smoke twice today. Usual c/o chronic pain in abdomen and back, medicated with scheduled meds. No c/o sob, nausea, headache. VSS. Afebrile. Reviewed discharge paperwork with patient and at bedside, all questions were answered. Copy provided. Meds faxed to pharmacy. [place] to call and schedule f/u appointment. Escorted by REGIONAL COMMERCIAL SALES MANAGER via w/c. to transport home. Personal belongings bagged by REGIONAL COMMERCIAL SALES MANAGER and patient, also sent home.
== END 2020-07-09 13:53 | disposition home health service (06) | DRG 871 ==
LOC: ER 21:58 → MEDS 07-05 01:47
PROVIDERS: Emergency Medicine; Hospitalist; ADMIT Internal Medicine
DX: A41.9 Sepsis, unspecified organism (principal); G92 Toxic encephalopathy; J44.1 Chronic obstructive pulmonary disease with (acute) exacerbation; F11.23 Opioid dependence with withdrawal; E11.9 Type 2 diabetes mellitus without complications; M19.90 Unspecified osteoarthritis, unspecified site; M06.9 Rheumatoid arthritis, unspecified; F17.210 Nicotine dependence, cigarettes, uncomplicated; E03.9 Hypothyroidism, unspecified; G89.4 Chronic pain syndrome; E83.119 Hemochromatosis, unspecified; J98.01 Acute bronchospasm; K52.9 Noninfective gastroenteritis and colitis, unspecified; Z20.828 Contact with and (suspected) exposure to other viral communicable diseases; I11.0 Hypertensive heart disease with heart failure; I50.9 Heart failure, unspecified
CPT/HCPCS: 0099U; 36415; 71045; 71260; 74177; 80048; 80053; 81001; 82550; 83605; 83735; 83880; 84100; 84484; 85025; 87040; 93005; 93010; 93306; 94640; 94760; 96365; 97110; 97116; 97162; 97165; 97535; 99285-25; A9270; J0360; J0696; J1650; J2405; J2930; J7030; J7512; Q9967; U0002

== ENCOUNTER 2020-08-29 03:26 | Emergency (ER) | payer MEDICARE, OTHER ==
[~2020-08-29] VITALS: Ht 165.1 cm; Wt 65.8 kg
[~2020-08-29 03:26] MED LIST changes: +AIRDUO RESPICL1 EAC4 INH; +ONDA4 PO; +Prinivil10 MG PO; +ROXICODONE5 MG PO
[2020-08-29 03:44] LABS: BASOPHILS ABSOLUTE AUTO 0.03 K/mm3 (0.00-0.23); BASOPHILS PERCENT AUTO 0 % (0-2); EOSINOPHILS ABSOLUTE AUTO 0.12 K/mm3 (0.00-0.68); EOSINOPHILS PERCENT AUTO 2 % (0-6); Hematocrit 42.3 % (33.0-51.0); Hemoglobin 13.4 g/dL (11.5-16.0); IMMATURE GRAN ABSOLUTE AUTO 0.03 K/mm3 (0.00-0.10); IMMATURE GRAN PERCENT AUTO 0 % (0-1); LYMPHOCYTES ABSOLUTE AUTO 1.25 K/mm3 (0.84-5.20); LYMPHOCYTES PERCENT AUTO 16 % (21-46); MONOCYTES PERCENT AUTO 8 % (4-13); Mean Corpuscular HGB 32.1 pg (26.0-34.0); Mean Corpuscular HGB Conc 31.7 g/dL (31.5-36.5); Mean Corpuscular Volume 101 fL (80-100); Mean Platelet Volume 10.2 fL (9.1-12.4); NEUTROPHILS PERCENT AUTO 74 % (41-73); Platelet Count 183 K/mm3 (150-400); RDW Coefficient Variation 15.2 % (11.7-14.2); RDW Standard Deviation 57.5 fL (35.1-46.3); Red Blood Cell Count 4.18 M/mm3 (3.80-5.20); White Blood Cell Count 7.73 K/mm3 (4.00-11.30)
[2020-08-29 04:04] LABS: Troponin I 0.091 ng/mL (0.000-0.040)
[2020-08-29 04:05] LABS: Alanine Aminotransfer (ALT/SGP 11 U/L (12-78); Albumin, Blood 2.8 g/dL (3.4-5.0); Albumin/Globulin Ratio 0.7 (0.8-1.8); Alk Phos 82 U/L (50-136); Anion Gap 3 mmol/L (6-16); Aspartate Aminotrans (AST/SGOT 9 U/L (12-37); Bilirubin, Total 0.3 mg/dL (0.1-1.0); Blood Urea Nitrogen 16 mg/dL (8-24); Bun/Creatinine Ratio 19.5 (12.0-20.0); CO2, Blood 31 mmol/L (21-32); Calcium, Blood 8.1 mg/dL (8.5-10.1); Chloride, Blood 104 mmol/L (98-108); Creatinine, Blood 0.82 mg/dL (0.40-1.00); Globulin, Blood 4.3 g/dL (2.2-4.0); Glomerular Filtration Rate >60 (60-); Glucose, Blood 117 mg/dL (70-99); Potassium, Blood 4.7 mmol/L (3.5-5.5); Sodium, Blood 138 mmol/L (136-145); Total Protein, Blood 7.1 g/dL (6.4-8.2)
[2020-08-29 05:20] LABS: Source, Urine Catheter
[2020-08-29 05:22] LABS: Bilirubin, Urine Neg (Neg); Blood, Urine 2+ (Neg); Glucose Qualitative, Urine Neg (Neg); Ketones, Urine Neg (Neg); Leukocyte Esterase, Urine Neg (Neg); Nitrite, Urine Neg (Neg); Protein, Urine Neg (Neg); Specific Gravity, Urine 1.005 (1.003-1.022); Urobilinogen, Urine NORM (Normal)
[2020-08-29 05:28] LABS: Appearance, Urine Clear (Clear); Color, Urine Yellow (P-Yellow)
[2020-08-29 05:37] LABS: Bacteria Not Seen /hpf; Red Blood Cells, Urine 0-2 /hpf (0-2); Squamous Epithelial Cells Rare /hpf (Few); White Blood Cells, Urine Not Seen /hpf (0-5)
[2020-08-29] MEDS ORDERED: Zithromax250 MG PO (05:49)
== END 2020-08-29 07:01 | disposition home or self-care (01) ==
LOC: ER 03:26
PROVIDERS: Student in an Organized Health Care Education/Training Program
DX: J44.1 Chronic obstructive pulmonary disease with (acute) exacerbation (principal); L30.4 Erythema intertrigo; E11.9 Type 2 diabetes mellitus without complications; I10 Essential (primary) hypertension; F17.210 Nicotine dependence, cigarettes, uncomplicated; Z79.52 Long term (current) use of systemic steroids; Z79.899 Other long term (current) drug therapy
CPT/HCPCS: 36415; 71046; 80053; 81001; 84484; 85025; 93005; 93010; 99285-25; A9270-GY

== ENCOUNTER → 2020-09-04 | Outpatient (CLI) | payer MEDICARE, OTHER ==
[~2020-09-04] MED LIST changes: +EUTHYROX175 MCG PO; +HYDCHL25 PO; +METO100 PO
== END | disposition home or self-care (01) ==
LOC: LAB SHORT 12:30 → LAB EV 12:30
DX: L02.511 Cutaneous abscess of right hand (principal)
CPT/HCPCS: 87070; 87077; 87147; 87186; 87205

== ENCOUNTER 2020-09-09 13:44 | Emergency (ER) | payer MEDICARE, OTHER ==
[~2020-09-09] VITALS: Ht 165.1 cm; Wt 72.1 kg
[~2020-09-09 13:44] MED LIST changes: -EUTHYROX175 MCG PO; -HYDCHL25 PO; -METO100 PO
[2020-09-09] MEDS ORDERED: METO100 PO (14:04)
[2020-09-09] MEDS ORDERED: GABA300 PO (14:05)
[2020-09-09] MEDS ORDERED: EUTHYROX175 MCG PO (14:05)
[2020-09-09] MEDS ORDERED: HYDCHL25 PO (14:05)
== END 2020-09-09 14:57 | disposition home or self-care (01) ==
LOC: ER 13:44
DX: R10.13 Epigastric pain (principal); R74.8 Abnormal levels of other serum enzymes; J44.9 Chronic obstructive pulmonary disease, unspecified; E11.9 Type 2 diabetes mellitus without complications; I11.0 Hypertensive heart disease with heart failure; I50.9 Heart failure, unspecified; E03.9 Hypothyroidism, unspecified; E78.5 Hyperlipidemia, unspecified; F41.9 Anxiety disorder, unspecified; F32.9 Major depressive disorder, single episode, unspecified; F17.210 Nicotine dependence, cigarettes, uncomplicated
CPT/HCPCS: 93005; 93010; 99284-25

== ENCOUNTER → 2020-09-09 | Outpatient (CLI) | payer MEDICARE, OTHER ==
[2020-09-09 12:37] LABS: BASOPHILS ABSOLUTE AUTO 0.06 K/mm3 (0.00-0.23); BASOPHILS PERCENT AUTO 1 % (0-2); EOSINOPHILS ABSOLUTE AUTO 0.07 K/mm3 (0.00-0.68); EOSINOPHILS PERCENT AUTO 1 % (0-6); Hematocrit 43.6 % (33.0-51.0); Hemoglobin 14.6 g/dL (11.5-16.0); IMMATURE GRAN ABSOLUTE AUTO 0.03 K/mm3 (0.00-0.10); IMMATURE GRAN PERCENT AUTO 0 % (0-1); LYMPHOCYTES ABSOLUTE AUTO 1.01 K/mm3 (0.84-5.20); LYMPHOCYTES PERCENT AUTO 13 % (21-46); MONOCYTES ABSOLUTE AUTO 0.35 K/mm3 (0.16-1.47); MONOCYTES PERCENT AUTO 4 % (4-13); Mean Corpuscular HGB 32.5 pg (26.0-34.0); Mean Corpuscular HGB Conc 33.5 g/dL (31.5-36.5); Mean Corpuscular Volume 97 fL (80-100); Mean Platelet Volume 10.2 fL (9.1-12.4); NEUTROPHILS ABSOLUTE AUTO 6.48 K/mm3 (1.96-9.15); NEUTROPHILS PERCENT AUTO 81 % (41-73); Platelet Count 194 K/mm3 (150-400); RDW Coefficient Variation 15.5 % (11.7-14.2); RDW Standard Deviation 55.2 fL (35.1-46.3); Red Blood Cell Count 4.49 M/mm3 (3.80-5.20)
[2020-09-09 13:04] LABS: Bun/Creatinine Ratio 18.6 (12.0-20.0); Calcium, Blood 8.9 mg/dL (8.5-10.1); Creatinine, Blood 1.13 mg/dL (0.40-1.00); Potassium, Blood 5.1 mmol/L (3.5-5.5); Troponin I 0.059 ng/mL (0.000-0.040)
== END ==
LOC: LAB EV 12:31 → LAB SHORT 12:31
PROVIDERS: Physician Assistant Surgical
DX: R06.02 Shortness of breath (principal)
CPT/HCPCS: 80048; 84484; 85025

== ENCOUNTER 2020-10-10 10:39 | Emergency (ER) | payer OTHER ==
[~2020-10-10] VITALS: Ht 162.6 cm; Wt 70.3 kg
[~2020-10-10 10:39] MED LIST changes: +EUTHYROX175 MCG PO; +HYDCHL25 PO; +METO100 PO
[2020-10-10 11:34] LABS: BASOPHILS ABSOLUTE AUTO 0.03 K/mm3 (0.00-0.23); BASOPHILS PERCENT AUTO 1 % (0-2); EOSINOPHILS PERCENT AUTO 2 % (0-6); Hematocrit 47.4 % (33.0-51.0); Hemoglobin 14.9 g/dL (11.5-16.0); IMMATURE GRAN ABSOLUTE AUTO 0.02 K/mm3 (0.00-0.10); IMMATURE GRAN PERCENT AUTO 0 % (0-1); LYMPHOCYTES ABSOLUTE AUTO 1.12 K/mm3 (0.84-5.20); LYMPHOCYTES PERCENT AUTO 20 % (21-46); MONOCYTES ABSOLUTE AUTO 0.42 K/mm3 (0.16-1.47); MONOCYTES PERCENT AUTO 8 % (4-13); Mean Corpuscular HGB Conc 31.4 g/dL (31.5-36.5); Mean Corpuscular Volume 102 fL (80-100); Mean Platelet Volume 10.7 fL (9.1-12.4); NEUTROPHILS PERCENT AUTO 69 % (41-73); Platelet Count 178 K/mm3 (150-400); RDW Coefficient Variation 15.3 % (11.7-14.2); RDW Standard Deviation 58.4 fL (35.1-46.3); Red Blood Cell Count 4.66 M/mm3 (3.80-5.20); White Blood Cell Count 5.49 K/mm3 (4.00-11.30)
[2020-10-10 11:50] LABS: Alanine Aminotransfer (ALT/SGP 16 U/L (12-78); Albumin, Blood 3.2 g/dL (3.4-5.0); Albumin/Globulin Ratio 0.6 (0.8-1.8); Alk Phos 91 U/L (50-136); Anion Gap 3 mmol/L (6-16); Aspartate Aminotrans (AST/SGOT 22 U/L (12-37); Bilirubin, Total 0.6 mg/dL (0.1-1.0); Blood Urea Nitrogen 15 mg/dL (8-24); Bun/Creatinine Ratio 16.6 (12.0-20.0); CO2, Blood 29 mmol/L (21-32); Calcium, Blood 8.8 mg/dL (8.5-10.1); Chloride, Blood 106 mmol/L (98-108); Globulin, Blood 5.2 g/dL (2.2-4.0); Glomerular Filtration Rate >60 (60-); Glucose, Blood 106 mg/dL (70-99); Potassium, Blood 4.7 mmol/L (3.5-5.5); Sodium, Blood 138 mmol/L (136-145); Total Protein, Blood 8.4 g/dL (6.4-8.2); Troponin I 0.087 ng/mL (0.000-0.040)
[2020-10-10] MEDS ORDERED: FURO40 PO (14:01)
== END 2020-10-10 14:00 | disposition home or self-care (01) ==
LOC: ER 10:39
PROVIDERS: Physician Assistant
DX: I11.0 Hypertensive heart disease with heart failure (principal); I50.9 Heart failure, unspecified; E11.9 Type 2 diabetes mellitus without complications; J44.9 Chronic obstructive pulmonary disease, unspecified; F32.9 Major depressive disorder, single episode, unspecified; F41.9 Anxiety disorder, unspecified; F17.210 Nicotine dependence, cigarettes, uncomplicated; Z79.899 Other long term (current) drug therapy
CPT/HCPCS: 36415; 71045; 80053; 83880; 84484; 85025; 93005; 93010; 99284-25

== ENCOUNTER 2021-04-09 14:34 | Inpatient (IN) | payer OTHER, MEDICARE ==
[~2021-04-09] VITALS: Ht 165.1 cm; Wt 77.1 kg
[2021-04-09 15:01] LABS: Source, Urine Catheter
[2021-04-09 15:08] LABS: Hematocrit 42.6 % (33.0-51.0); Hemoglobin 13.9 g/dL (11.5-16.0); Mean Corpuscular HGB 32.5 pg (26.0-34.0); Mean Corpuscular HGB Conc 32.6 g/dL (31.5-36.5); Mean Corpuscular Volume 100 fL (80-100); Mean Platelet Volume 11.5 fL (9.1-12.4); Platelet Count 117 K/mm3 (150-400); RDW Coefficient Variation 13.9 % (11.7-14.2); RDW Standard Deviation 50.9 fL (35.1-46.3); Red Blood Cell Count 4.28 M/mm3 (3.80-5.20); White Blood Cell Count 11.48 K/mm3 (4.00-11.30)
[2021-04-09 15:08] LABS: Appearance, Urine Hazy (Clear); Bilirubin, Urine Neg (Neg); Blood, Urine 4+ (Neg); Color, Urine Yellow (P-Yellow); Glucose Qualitative, Urine Neg (Neg); Ketones, Urine Neg (Neg); Leukocyte Esterase, Urine 1+ (Neg); Nitrite, Urine Pos (Neg); Protein, Urine 2+ (Neg); Specific Gravity, Urine 1.015 (1.003-1.022); Urobilinogen, Urine NORM (Normal)
[2021-04-09 15:19] LABS: Bacteria Many /hpf; Red Blood Cells, Urine 0-2 /hpf (0-2); Squamous Epithelial Cells Rare /hpf (Few)
[2021-04-09 15:24] LABS: Albumin, Blood 2.6 g/dL (3.4-5.0); Albumin/Globulin Ratio 0.6 (0.8-1.8); Bilirubin, Total 0.8 mg/dL (0.1-1.0); Calcium, Blood 7.9 mg/dL (8.5-10.1); Creatinine, Blood 1.16 mg/dL (0.40-1.00); Globulin, Blood 4.1 g/dL (2.2-4.0); International Normalized Ratio 1.05; Potassium, Blood 3.9 mmol/L (3.5-5.5); Prothrombin Time Results 11.3 Sec (9.7-11.5); Total Protein, Blood 6.7 g/dL (6.4-8.2)
[2021-04-09 15:25] LABS: BAND PERCENT MAN 18 % (0-8); BASOPHILS PERCENT MAN 0 % (0-2); EOSINOPHILS PERCENT MAN 0 % (0-6); LYMPHOCYTES ABSOLUTE MAN 0.57 K/mm3 (0.84-5.20); LYMPHOCYTES PERCENT MAN 5 % (21-46); MONOCYTES ABSOLUTE MAN 0.22 K/mm3 (0.16-1.47); MONOCYTES PERCENT MAN 2 % (4-13); NEUTROPHILS ABSOLUTE MAN 10.67 K/mm3 (1.96-9.15); SEG NEUTROPHILS PERCENT MAN 75 % (41-73); TOTAL CELLS COUNTED 100
[2021-04-09 17:07] LABS: U Amphetamine Screen Not Detected; U Barbituate Screen Not Detected; U Benzodiazapine Screen Not Detected; U Buprenorphine Screen Not Detected; U Cannabinoids Screen Not Detected; U Cocaine Screen Not Detected; U Methadone Screen Not Detected; U Methamphetamine Screen Not Detected; U Opiates Screen Not Detected; U Oxycodone Screen DETECTED; U Phencyclidine Screen Not Detected; U Propoxyphene Screen Not Detected
--- NOTE | 2021-04-09 18:00 | NUR ---
PATIENT ARRIVED FROM ED, VSS WITH O2 SATS >90% ON 2 LPM VIA NASAL CANNULA. PATIENT IS LETHARGIC, UNABLE TO FOLLOW COMMANDS. RESP RATE 16, NO LABORED BREATHING NOTED. FAMILY AT BEDSIDE, ADMIT COMPLETED BY QUINTEN BROCK.
--- NOTE | 2021-04-09 18:40 | NUR ---
THIS RN ADMINISTERED A DOSE OF NARCAN IN RESPONSE TO THE PT'S CONDITION AND HER 'S REPORTS THAT "SHE MAY HAVE TAKEN SOME OXYCODONE I DROPPED." PT'S REPORTS THAT THE PT DOES NOT REMEMBER AFTER TAKING MEDICATIONS AND HAS BEEN KNOWN TO TAKE EXTRA DOSES OF MEDICATION BY MISTAKE. ON ARRIVAL TO PCU RM 9 PT IS LETHARGIC, NON VERBAL, AND NOT FOLLOWING COMMANDS. RESPIRATIONS ARE EVEN AND UNLABORED AND SPO2 > 95%. NARCAN WAS ADMINISTERED AND WITHIN 5 MINS PT IS AWAKE, ALERT AND ORIENTED TO SELF AND BEING IN THE HOSPITAL. UPON AWAKING, PT IS NOTED TO HAVE WHAT APPEARS TO BE A MEDICATION CAPSULE IN HER MOUTH. THE COLOR COATING OF THE CAPSULE WAS STUCK TO HER TOUNGE, AND ACCORDING TO THE FAMILY, THAT CAPSULE HAD BEEN SITTING IN HER MOUTH SINCE AT LEAST 9AM THIS MORNING. CAPSULE'S COLORS HAD PARTIALLY WORN OFF, BUT RED COLORING WAS NOTED ON ONE SIDE. PRIMARY RN TREVER WAS INFORMED AND ASSUMED CARE.
[2021-04-09] MEDS ORDERED: METO100 PO (19:10)
[2021-04-09] MEDS ORDERED: Ondansetron Odt8 MG MM (19:10)
[2021-04-09] MEDS ORDERED: Prinivil10 MG PO (19:11)
[2021-04-09] MEDS ORDERED: NARCAN4 M1 (19:12)
[2021-04-09] MEDS ORDERED: CLON.1 PO (19:13)
[2021-04-09] MEDS ORDERED: Oxycodone HCl20 M1 PO (19:17)
[2021-04-10 04:13] LABS: BASOPHILS ABSOLUTE AUTO 0.02 K/mm3 (0.00-0.23); BASOPHILS PERCENT AUTO 0 % (0-2); EOSINOPHILS ABSOLUTE AUTO 0.04 K/mm3 (0.00-0.68); EOSINOPHILS PERCENT AUTO 0 % (0-6); Hematocrit 38.7 % (33.0-51.0); Hemoglobin 12.7 g/dL (11.5-16.0); IMMATURE GRAN ABSOLUTE AUTO 0.06 K/mm3 (0.00-0.10); IMMATURE GRAN PERCENT AUTO 1 % (0-1); LYMPHOCYTES ABSOLUTE AUTO 1.58 K/mm3 (0.84-5.20); LYMPHOCYTES PERCENT AUTO 13 % (21-46); MONOCYTES PERCENT AUTO 6 % (4-13); Mean Corpuscular HGB 32.5 pg (26.0-34.0); Mean Corpuscular HGB Conc 32.8 g/dL (31.5-36.5); Mean Corpuscular Volume 99 fL (80-100); NEUTROPHILS ABSOLUTE AUTO 9.85 K/mm3 (1.96-9.15); NEUTROPHILS PERCENT AUTO 80 % (41-73); Platelet Count 116 K/mm3 (150-400); RDW Coefficient Variation 14.2 % (11.7-14.2); RDW Standard Deviation 51.4 fL (35.1-46.3); Red Blood Cell Count 3.91 M/mm3 (3.80-5.20); White Blood Cell Count 12.25 K/mm3 (4.00-11.30)
[2021-04-10 04:38] LABS: Alanine Aminotransfer (ALT/SGP 15 U/L (12-78); Albumin, Blood 2.2 g/dL (3.4-5.0); Albumin/Globulin Ratio 0.6 (0.8-1.8); Alk Phos 67 U/L (50-136); Anion Gap 4 mmol/L (6-16); Aspartate Aminotrans (AST/SGOT 14 U/L (12-37); Bilirubin, Total 0.6 mg/dL (0.1-1.0); Blood Urea Nitrogen 19 mg/dL (8-24); CO2, Blood 25 mmol/L (21-32); Calcium, Blood 7.9 mg/dL (8.5-10.1); Chloride, Blood 109 mmol/L (98-108); Creatinine, Blood 0.95 mg/dL (0.40-1.00); Globulin, Blood 3.9 g/dL (2.2-4.0); Glomerular Filtration Rate >60 (60-); Glucose, Blood 102 mg/dL (70-99); Potassium, Blood 3.8 mmol/L (3.5-5.5); Sodium, Blood 138 mmol/L (136-145); Total Protein, Blood 6.1 g/dL (6.4-8.2)
--- NOTE | 2021-04-10 05:27 | NUR ---
SHIFT SUMMARY PATIENT LETHARGIC AT BEGINNING OF SHIFT BUT ORIENTED X4. PATIENT NOW ALERT AND HAVING FULL CONVERSATIONS. TWO PERSON ASSIST WITH REPOSITIONING Q2 HOURS. INCONTINENT AT TIMES, USES BEDPAN OTHER TIMES. 02 SATS 93% ON RA. VSS, NO ACUTE CHANGES. CALL LIGHT IN REACH.
--- NOTE | 2021-04-10 18:00 | NUR ---
SHIFT SUMMARY PT A&Ox3; FORGETFUL AND SETTING OFF CALL LIGHT SEVERAL TIMES DURING SHIFT. PT UP WITH 1 PERSON ASSIST WITH WALKER AND GAITBELT. PT DENIES PAIN, CHEST PAIN, SOB, NAUSEA AND DIZZINESS T/O SHIFT. STARTED ON SUBOXONE DURING SHIFT, PLANS TO STOP OXYCODONE AT HOME; DR ZAMORA AT BEDSIDE WITH PATIENT AND SPOUSE, EDUCATED PT/SPOUSE OF MEDICATIONS, SIDE EFFECTS AND THE IMPORTANCE OF NOT TAKING OTHER NARCOTICS WHILE ON SUBOZONE. VSS. NO OTHER ACUTE CHANGES NOTED. WILL CONTINUE TO MONITOR UNTIL REPORT GIVEN TO ONCOMING RN.
--- NOTE | 2021-04-11 05:59 | NUR ---
PATIENT UP SEVERAL HOURS AFTER TRANSFER FROM PCU 09. TREVER WAS OOB SEVERAL TIMES TO BATHROOM VOIDING SMALL AMOUNTS AT A TIME. pATIENT IS VERY ALERT AND ORIENTED X3-4, HOWEVER VERY FORGETFUL. ELEVATED SBP UPON ARRIVAL DECREASED SIGNIFICANTLY AFTER RECEIVING 2 MG PO ATIVAN FOR ANXIETY. SUBOXONE TO BE GIVEN AT THIS TIME FOR PAIN PER PATIENT REQUEST.
--- NOTE | 2021-04-11 13:19 | NUR ---
dr damon and Patricia load planner rounded on pt. this rn spoke with pt's and daughter this shift, who both asked about suboxone. this rn spoke with Dr Damon about planning, communicated between family and md to arrange meet to discuss DC needs.
--- NOTE | 2021-04-11 13:37 | NUR ---
father dyan to see pt
--- NOTE | 2021-04-11 15:00 | NUR ---
dr damon with family and pt
--- NOTE | 2021-04-11 15:12 | NUR ---
pt's spouse and daughter took pt outside in wheelchair
[2021-04-11] MEDS ORDERED: AMOCLA875 PO (15:38)
[2021-04-11] MEDS ORDERED: SUBOXONE 8 MG-1 EACH SL (15:39)
--- NOTE | 2021-04-11 16:19 | NUR ---
OT in with pt and spouse; DC orders complete. Will DC patient following OT eval.
--- NOTE | 2021-04-11 16:45 | NUR ---
provided pt and spouse with DC instructions, written prescription, printed materials. They both state understanding of instructions. Pt transported to awaiting vehicle, with her belongings, via wheelchair
--- NOTE | 2021-04-11 17:14 | NUR ---
ADMIT: 04/09/21 DISCHARGE: 04/11/21 DX: Sepsis, due UTI CC: [email or web address] CASPER CALL: pt at [phone] (1 week with either Warren Thao or Danish) RESIDENCE: Home CAREGIVER: Emmanuel Lim, Spouse / Partner, Carmella San Daughter [phone], Child, DX: Acute hypoxemic resp. failure, HTN, Pneumonia, CHF, CKD-stage 3, see list DME: Dm supplies, CCM: Referral-2017 HOME HEALTH: [facility]- 2020 SUMMARY: 04/11/21 - per chart review with Dr. Thao, pt is medically stable to d/c home but OT and PT have been ordered for assessment needs. Pt OD on her pain medication, so Dr. Thao has put pt on Suboxone. Outside of the pt's room, RN expressed concern about her impulsiveness, wobbly when she gets up, trying to get out of bed without assistance and being verbally aggressive with staff. They are thinking of transfering pt to the locked unit. Met with pt who reports that her will be coming to get her at d/c and that her and son are able to help her in the home. Pt reports that her pharmacy is [facility] and there are no stairs in her home. Pt would like a bedside commode if it can be ordered for her. There are no stair into the home. Discussed nursing staff concerns with Dr. Thao who reports that she will be d/c pt today with home health and she will need home health. Pt has had services with [facility]. Will need to resume services. -luke
== END 2021-04-11 16:54 | disposition home health service (06) | DRG 871 ==
LOC: ER 14:34 → PCU 16:21 → MEDS 04-11 00:10
PROVIDERS: Emergency Medicine; ADMIT Family Medicine
DX: A41.9 Sepsis, unspecified organism (principal); G93.41 Metabolic encephalopathy; N39.0 Urinary tract infection, site not specified; I50.32 Chronic diastolic (congestive) heart failure; I13.0 Hypertensive heart and chronic kidney disease with heart failure and stage 1 through stage 4 chronic kidney disease, or unspecified chronic kidney disease; G89.4 Chronic pain syndrome; J44.9 Chronic obstructive pulmonary disease, unspecified; M19.90 Unspecified osteoarthritis, unspecified site; M06.9 Rheumatoid arthritis, unspecified; F41.8 Other specified anxiety disorders; E83.119 Hemochromatosis, unspecified; N18.30 Chronic kidney disease, stage 3 unspecified; E11.22 Type 2 diabetes mellitus with diabetic chronic kidney disease; E03.9 Hypothyroidism, unspecified; E78.5 Hyperlipidemia, unspecified; B96.20 Unspecified Escherichia coli [E. coli] as the cause of diseases classified elsewhere; F17.210 Nicotine dependence, cigarettes, uncomplicated; Z79.891 Long term (current) use of opiate analgesic; Z79.899 Other long term (current) drug therapy
CPT/HCPCS: 36415; 70450; 71045; 80053; 81001; 83605; 85025; 85610; 85730; 87040; 87077; 87086; 87186; 93005; 93010; 94640; 94760; 96365; 96375; 97110; 97116; 97129; 97130; 97162; 97165; 97530; 99285-25; A9270; J0456; J0572; J0696; J1650; J2310; J7050; J7120; P9612

== ENCOUNTER 2021-12-15 20:23 | Inpatient (IN) | payer OTHER ==
[~2021-12-15] VITALS: Ht 165.1 cm; Wt 69.4 kg
[~2021-12-15 20:23] MED LIST changes: +AMOCLA875 PO; +CLON.1 PO; +NARCAN4 M1; +Ondansetron Odt8 MG MM; +SUBOXONE 8 MG-1 EACH SL
[2021-12-15 21:02] LABS: BASOPHILS ABSOLUTE AUTO 0.04 K/mm3 (0.00-0.23); BASOPHILS PERCENT AUTO 0 % (0-2); EOSINOPHILS PERCENT AUTO 0 % (0-6); Hematocrit 48.3 % (33.0-51.0); Hemoglobin 15.4 g/dL (11.5-16.0); IMMATURE GRAN ABSOLUTE AUTO 0.15 K/mm3 (0.00-0.10); IMMATURE GRAN PERCENT AUTO 1 % (0-1); LYMPHOCYTES PERCENT AUTO 4 % (21-46); MONOCYTES ABSOLUTE AUTO 1.14 K/mm3 (0.16-1.47); MONOCYTES PERCENT AUTO 7 % (4-13); Mean Corpuscular HGB 32.8 pg (26.0-34.0); Mean Corpuscular HGB Conc 31.9 g/dL (31.5-36.5); Mean Corpuscular Volume 103 fL (80-100); Mean Platelet Volume 11.3 fL (9.1-12.4); NEUTROPHILS ABSOLUTE AUTO 13.46 K/mm3 (1.96-9.15); NEUTROPHILS PERCENT AUTO 87 % (41-73); Platelet Count 216 K/mm3 (150-400); RDW Coefficient Variation 14.2 % (11.7-14.2); RDW Standard Deviation 54.7 fL (35.1-46.3); Red Blood Cell Count 4.69 M/mm3 (3.80-5.20); White Blood Cell Count 15.39 K/mm3 (4.00-11.30)
[2021-12-15 21:26] LABS: Albumin, Blood 3.1 g/dL (3.4-5.0); Albumin/Globulin Ratio 0.6 (0.8-1.8); Bilirubin, Total 1.2 mg/dL (0.1-1.0); Bun/Creatinine Ratio 16.9 (12.0-20.0); Calcium, Blood 8.3 mg/dL (8.5-10.1); Creatinine, Blood 1.54 mg/dL (0.40-1.00); Globulin, Blood 5.2 g/dL (2.2-4.0); Total Protein, Blood 8.3 g/dL (6.4-8.2)
[2021-12-15 22:01] LABS: Troponin I 0.265 ng/mL (0.000-0.040)
[2021-12-15 22:13] LABS: Influenza A, PCR NEGATIVE (NEGATIVE); Influenza B, PCR NEGATIVE (NEGATIVE); Resp Syncytial Virus, PCR NEGATIVE (NEGATIVE); SARS-Cov-2 (COVID-19) PCR, MMC NEGATIVE (NEGATIVE)
[2021-12-15 22:21] LABS: Source, Urine Clean Catch
[2021-12-15 22:24] LABS: Bilirubin, Urine Neg (Neg); Blood, Urine 5+ (Neg); Glucose Qualitative, Urine Neg (Neg); Ketones, Urine Neg (Neg); Leukocyte Esterase, Urine 1+ (Neg); Nitrite, Urine Neg (Neg); Protein, Urine 3+ (Neg); Specific Gravity, Urine 1.025 (1.003-1.022); Urobilinogen, Urine 2+ (Normal)
[2021-12-15 22:31] LABS: Appearance, Urine Hazy (Clear); Color, Urine Yellow (P-Yellow)
[2021-12-15 22:32] LABS: Bacteria Many /hpf; Squamous Epithelial Cells Not Seen /hpf (Few)
--- NOTE | 2021-12-16 04:43 | NUR ---
PT ADMITTED THIS SHIFT. RESTING IN BED. UP TO BSC WITH 1 ASSIST. STILL CONFUSED AND DROWSY. IVF INFUSING. O2 3L NC IN PLACE. LABS DRAWN, LACTIC ACID IMPROVING. CONTINUE POC.
[2021-12-16 04:50] LABS: Hematocrit 40.4 % (33.0-51.0); Hemoglobin 12.9 g/dL (11.5-16.0); Mean Corpuscular HGB 32.7 pg (26.0-34.0); Mean Corpuscular HGB Conc 31.9 g/dL (31.5-36.5); Mean Corpuscular Volume 103 fL (80-100); Mean Platelet Volume 10.9 fL (9.1-12.4); Platelet Count 146 K/mm3 (150-400); RDW Coefficient Variation 13.9 % (11.7-14.2); RDW Standard Deviation 53.3 fL (35.1-46.3); Red Blood Cell Count 3.94 M/mm3 (3.80-5.20); White Blood Cell Count 10.46 K/mm3 (4.00-11.30)
[2021-12-16 05:36] LABS: Bun/Creatinine Ratio 22.4 (12.0-20.0); Calcium, Blood 7.8 mg/dL (8.5-10.1); Creatinine, Blood 1.34 mg/dL (0.40-1.00); Potassium, Blood 4.3 mmol/L (3.5-5.5)
--- NOTE | 2021-12-16 06:15 | NUR ---
CRITICAL LACTIC ACID VALUE OF 2.3 REPORTED. PREVIOUS RESULT WAS 3.7.
--- NOTE | 2021-12-16 08:08 | NUR ---
VINOD prescott handoff of patient care from VINOD Figueroa Patient was sitting in bed in room. She requests to have a cup of water, she had no other requests. Besides a cough, she didnt appear to be in distress
--- NOTE | 2021-12-16 11:46 | NUR ---
Spiritual care visit conducted. Upon receiving a referral for spiritual care, I visit pt. Pt tells me about her family unit complications and the stress and worry she is feeling. I provide therapeutic listening, gentle counseling program leader and prayer. Patient responds well and show signs of increased peace. I will continue to remain available to patient and family.
--- NOTE | 2021-12-17 04:48 | NUR ---
PT RESTING IN BED. UP TO BSC, BM TODAY. O2 DOWN TO 2L NC. ZOFRAN FOR NAUSEA. PLAN TO D/C TODAY. CONTINUE POC.
[2021-12-17 05:25] LABS: BASOPHILS ABSOLUTE AUTO 0.01 K/mm3 (0.00-0.23); BASOPHILS PERCENT AUTO 0 % (0-2); EOSINOPHILS ABSOLUTE AUTO 0.04 K/mm3 (0.00-0.68); EOSINOPHILS PERCENT AUTO 1 % (0-6); Hematocrit 36.6 % (33.0-51.0); Hemoglobin 11.7 g/dL (11.5-16.0); IMMATURE GRAN ABSOLUTE AUTO 0.04 K/mm3 (0.00-0.10); IMMATURE GRAN PERCENT AUTO 1 % (0-1); LYMPHOCYTES ABSOLUTE AUTO 1.07 K/mm3 (0.84-5.20); LYMPHOCYTES PERCENT AUTO 16 % (21-46); MONOCYTES ABSOLUTE AUTO 0.59 K/mm3 (0.16-1.47); MONOCYTES PERCENT AUTO 9 % (4-13); Mean Corpuscular Volume 103 fL (80-100); Mean Platelet Volume 11.1 fL (9.1-12.4); NEUTROPHILS ABSOLUTE AUTO 5.12 K/mm3 (1.96-9.15); NEUTROPHILS PERCENT AUTO 75 % (41-73); Platelet Count 142 K/mm3 (150-400); RDW Standard Deviation 53.7 fL (35.1-46.3); Red Blood Cell Count 3.55 M/mm3 (3.80-5.20); White Blood Cell Count 6.87 K/mm3 (4.00-11.30)
[2021-12-17 06:26] LABS: Albumin, Blood 2.3 g/dL (3.4-5.0); Albumin/Globulin Ratio 0.6 (0.8-1.8); Bilirubin, Total 0.3 mg/dL (0.1-1.0); Bun/Creatinine Ratio 25.5 (12.0-20.0); Calcium, Blood 8.3 mg/dL (8.5-10.1); Creatinine, Blood 1.02 mg/dL (0.40-1.00); Globulin, Blood 4.1 g/dL (2.2-4.0); Magnesium, Blood 2.3 mg/dL (1.6-2.4); Total Protein, Blood 6.4 g/dL (6.4-8.2); Troponin I 0.23 ng/mL (0.000-0.040)
--- NOTE | 2021-12-17 07:53 | NUR ---
RN recvd handoff of patient care from VINOD Figueroa Patient was in bed asleep. No respiratory distress noted
[2021-12-17] MEDS ORDERED: Acetaminophen650 M1 PO (11:20)
[2021-12-17] MEDS ORDERED: CEFD300 PO (11:21)
[2021-12-17] MEDS ORDERED: LACT PO (11:22)
--- NOTE | 2021-12-17 16:13 | NUR ---
Patient was alert and orient, she discharged from the unit at 1600. SHe was still sleeping but got right up and into the wheelchair to leave the unit. RN reviewed discharge instructions and medications with patient's daughter and .
== END 2021-12-17 16:18 | disposition home health service (06) | DRG 871 ==
LOC: ER 20:23 → MEDS 23:05
PROVIDERS: Emergency Medicine; Family Medicine; Student in an Organized Health Care Education/Training Program; ADMIT Internal Medicine
DX: A41.4 Sepsis due to anaerobes (principal); I21.4 Non-ST elevation (NSTEMI) myocardial infarction; G92.8 Other toxic encephalopathy; N17.9 Acute kidney failure, unspecified; E87.2 Acidosis; E87.1 Hypo-osmolality and hyponatremia; N39.0 Urinary tract infection, site not specified; I50.42 Chronic combined systolic (congestive) and diastolic (congestive) heart failure; F11.20 Opioid dependence, uncomplicated; J96.10 Chronic respiratory failure, unspecified whether with hypoxia or hypercapnia; R65.20 Severe sepsis without septic shock; Z20.822 Contact with and (suspected) exposure to COVID-19; E11.9 Type 2 diabetes mellitus without complications; J44.9 Chronic obstructive pulmonary disease, unspecified; M19.90 Unspecified osteoarthritis, unspecified site; I11.0 Hypertensive heart disease with heart failure; F41.8 Other specified anxiety disorders; M06.9 Rheumatoid arthritis, unspecified; E83.119 Hemochromatosis, unspecified; E86.1 Hypovolemia; B96.1 Klebsiella pneumoniae [K. pneumoniae] as the cause of diseases classified elsewhere; Z53.20 Procedure and treatment not carried out because of patient's decision for unspecified reasons; G89.4 Chronic pain syndrome; Z76.5 Malingerer [conscious simulation]; Z79.899 Other long term (current) drug therapy
CPT/HCPCS: 0241U; 36415; 70450; 71045; 80048; 80053; 81001; 82140; 82947; 83605; 83735; 84484; 85025; 85027; 87040; 87077; 87086; 87186; 93005; 93010; 94640; 96374; 99285-25; A9270; J0696; J1650; J2405; J7030; J7120

== ENCOUNTER 2022-06-15 07:02 | Inpatient (IN) | payer OTHER ==
[~2022-06-15] VITALS: Ht 162.6 cm; Wt 70.5 kg
[~2022-06-15 07:02] MED LIST changes: +Acetaminophen650 M1 PO; +LACT PO
[2022-06-15] MEDS ORDERED: HYDCHL12.5 PO (07:26)
[2022-06-15 07:35] LABS: BASOPHILS ABSOLUTE AUTO 0.02 K/mm3 (0.00-0.23); BASOPHILS PERCENT AUTO 0 % (0-2); EOSINOPHILS ABSOLUTE AUTO 0.04 K/mm3 (0.00-0.68); EOSINOPHILS PERCENT AUTO 0 % (0-6); Hematocrit 42.4 % (33.0-51.0); Hemoglobin 14.1 g/dL (11.5-16.0); IMMATURE GRAN ABSOLUTE AUTO 0.08 K/mm3 (0.00-0.10); IMMATURE GRAN PERCENT AUTO 1 % (0-1); LYMPHOCYTES ABSOLUTE AUTO 1.45 K/mm3 (0.84-5.20); LYMPHOCYTES PERCENT AUTO 11 % (21-46); MONOCYTES ABSOLUTE AUTO 1.05 K/mm3 (0.16-1.47); MONOCYTES PERCENT AUTO 8 % (4-13); Mean Corpuscular HGB 32.1 pg (26.0-34.0); Mean Corpuscular HGB Conc 33.3 g/dL (31.5-36.5); Mean Corpuscular Volume 97 fL (80-100); Mean Platelet Volume 11.3 fL (9.1-12.4); NEUTROPHILS PERCENT AUTO 81 % (41-73); Platelet Count 169 K/mm3 (150-400); RDW Coefficient Variation 13.6 % (11.7-14.2); RDW Standard Deviation 49.2 fL (35.1-46.3); Red Blood Cell Count 4.39 M/mm3 (3.80-5.20); White Blood Cell Count 13.74 K/mm3 (4.00-11.30)
[2022-06-15 07:51] LABS: Albumin, Blood 2.6 g/dL (3.4-5.0); Albumin/Globulin Ratio 0.6 (0.8-1.8); Bilirubin, Total 0.3 mg/dL (0.1-1.0); Bun/Creatinine Ratio 23.2 (12.0-20.0); Calcium, Blood 6.6 mg/dL (8.5-10.1); Globulin, Blood 4.3 g/dL (2.2-4.0); Total Protein, Blood 6.9 g/dL (6.4-8.2)
[2022-06-15 08:24] LABS: Influenza A, PCR NEGATIVE (NEGATIVE); Influenza B, PCR NEGATIVE (NEGATIVE); Resp Syncytial Virus, PCR NEGATIVE (NEGATIVE); SARS-Cov-2 (COVID-19) PCR, MMC NEGATIVE (NEGATIVE)
[2022-06-15 08:55] LABS: Source, Urine Straight Cath
[2022-06-15 08:58] LABS: Bilirubin, Urine Neg (Neg); Blood, Urine 1+ (Neg); Glucose Qualitative, Urine Neg (Neg); Ketones, Urine Neg (Neg); Leukocyte Esterase, Urine 1+ (Neg); Nitrite, Urine Neg (Neg); Protein, Urine 1+ (Neg); Specific Gravity, Urine 1.015 (1.003-1.022); Urobilinogen, Urine NORM (Normal)
[2022-06-15 09:08] LABS: Amorphous Light (0-Heavy); Appearance, Urine Hazy (Clear); Bacteria Mod /hpf; Color, Urine Yellow (P-Yellow); Mucus Light (0-Heavy); Red Blood Cells, Urine 0-2 /hpf (0-2); Squamous Epithelial Cells Few /hpf (Few)
--- NOTE | 2022-06-15 14:05 | NUR ---
Pt arrived to 305 via bettyrtj from ED, report was obtained, pt pulled over to bed, a/ox3, pleasant and cooperative with care, follows commands well, denies pain, wanting food, has insp wheezing, currently on r/a, no cough noted at this time, but report was she has a harsh we cough, hrirr, can barely hear due to breathing, no edema noted, ppp faint, cap refill<3sec vs stable, afebrile, iv site is clear and patent, btx4, abd flat soft nontender, voids via bsc, briefs in place as well, skin is frail, but intact, has a red area to buttocks, looks almost rashy, placed a mepilex over sacrum for prevention, andres, michelle, kylah, call light in reach.
--- NOTE | 2022-06-15 18:21 | NUR ---
power glide was placed after multiple attempts to obtain iv access, to juan, site is clear and patent, infusing bicarb as ordered, has been up to bsc to void, no further changes this shift, call light in reach.
[2022-06-15] MEDS ORDERED: Ventolin/Prove6.7 GM INH (21:38)
[2022-06-15] MEDS ORDERED: FLUTICASONE-SA1 EA12 INH (21:39)
[2022-06-15] MEDS ORDERED: [UNRECOGNIZED DRUG - OTHER] PO (21:41)
[2022-06-15] MEDS ORDERED: LEVOTHYROXINE PO (21:41)
[2022-06-16 06:18] LABS: BASOPHILS ABSOLUTE AUTO 0.02 K/mm3 (0.00-0.23); BASOPHILS PERCENT AUTO 0 % (0-2); EOSINOPHILS ABSOLUTE AUTO 0.05 K/mm3 (0.00-0.68); EOSINOPHILS PERCENT AUTO 1 % (0-6); Hematocrit 36.7 % (33.0-51.0); Hemoglobin 12.9 g/dL (11.5-16.0); IMMATURE GRAN ABSOLUTE AUTO 0.05 K/mm3 (0.00-0.10); IMMATURE GRAN PERCENT AUTO 1 % (0-1); LYMPHOCYTES ABSOLUTE AUTO 0.71 K/mm3 (0.84-5.20); LYMPHOCYTES PERCENT AUTO 8 % (21-46); MONOCYTES ABSOLUTE AUTO 0.75 K/mm3 (0.16-1.47); MONOCYTES PERCENT AUTO 8 % (4-13); Mean Corpuscular HGB 32.1 pg (26.0-34.0); Mean Corpuscular HGB Conc 35.1 g/dL (31.5-36.5); NEUTROPHILS ABSOLUTE AUTO 7.31 K/mm3 (1.96-9.15); NEUTROPHILS PERCENT AUTO 82 % (41-73); Platelet Count 147 K/mm3 (150-400); RDW Coefficient Variation 13.5 % (11.7-14.2); RDW Standard Deviation 45.7 fL (35.1-46.3); Red Blood Cell Count 4.02 M/mm3 (3.80-5.20); White Blood Cell Count 8.89 K/mm3 (4.00-11.30)
[2022-06-16 06:32] LABS: Albumin, Blood 2.5 g/dL (3.4-5.0); Albumin/Globulin Ratio 0.6 (0.8-1.8); Bilirubin, Total 0.4 mg/dL (0.1-1.0); Bun/Creatinine Ratio 41.9 (12.0-20.0); Calcium, Blood 7.5 mg/dL (8.5-10.1); Creatinine, Blood 2.36 mg/dL (0.40-1.00); Globulin, Blood 4.3 g/dL (2.2-4.0); Magnesium, Blood 2.1 mg/dL (1.6-2.4); Phosphorus, Blood 5.3 mg/dL (2.5-4.9); Potassium, Blood 4.4 mmol/L (3.5-5.5); Total Protein, Blood 6.8 g/dL (6.4-8.2)
[2022-06-16 06:33] LABS: Mean Corpuscular Volume 91 fL (80-100)
--- NOTE | 2022-06-16 06:38 | NUR ---
ASSUMED CARE OF PT AT 1900. NO ACUTE CHANGES THIS SHIFT. PT IS A&OX3, MOD ASSIST OOB, USES BSC AND IS ABLE TO MAKE NEEDS KNOWN. BED ALARM REMAINS ON FOR PT SAFETY. HAS MIDLINE POWERGLIDE IN PLACE IN R ARM. THIS MORNING PT HAD SOME COMPLAINTS OF SOB, CONTACTED RT FOR BREATHING TREATMENT. PT RESTS BETWEEN CARES, SLEEPS 5+ HOURS THIS SHIFT. WILL CONTINUE TO MONITOR AND GIVE HANDOFF REPORT TO ONCOMING RN.
--- NOTE | 2022-06-16 13:21 | NUR ---
Spiritual Care Request. Pt. is resting in bed, but responds when I enter the room. Pt. is unsettled about her life and condition. Pt. verbalizes desire to go home and that daughter is preparing to pick her up. Listen theraputicaly with a calming presence. Rapport is attempted, but Pt. is not very interactive. [place] with Pt. Pt. verbalized gratitude for the spiritual care visit.
[2022-06-16] MEDS ORDERED: BACTRIM 400-801 EACH PO (14:44)
[2022-06-16] MEDS ORDERED: EUTHYROX175 MCG PO (14:46)
--- NOTE | 2022-06-16 17:16 | NUR ---
PT SLEEPING AT START OF SHIFT. WOKE FOR BREAKFAST, SITTING UP TO EOB TO EAT. PT UP TO BSC BEFORE GOING BACK TO SLEEP. DR ROLON IN TO SEE PT A COUPLE OF TIMES WHEN PT SLEEPING. ATTEMPTED TO WAKE PT, BUT PT WANTING TO SLEEP. PT LATER FOUND OUT DAUGHTER WAS GOING TO GO HOME AND STATED THAT SHE WAS GOING WITH HER. ATTEMPTED TO EDU PT ON SAFE D/C, BUT PT INSISTING THAT SHE WAS LEAVING. A FEW MINUTES LATER, WHEN CHECKING ON PT, IV FOUND ON FLOOR WITH IVF'S STILL RUNNING. PT STATED THAT SHE PULLED HER PG HERSELF BECAUSE SHE DIDN'T NEED IT ANYMORE. PT REFUSING TO HAVE ANOTHER IV SITE PLACED. DR ROLON NOTIFIED AND CAME TO TO EDU PT ON PLAN OF CARE AND NEED TO STAY. PT STILL REFUSING AND INSISTING ON GOING HOME WITH DAUGHTER. PT SIGNED AMA FORM. PT INFORMED OF NEED FOR CONTINUED ABX. PO ABX FAXED TO PT'S PHARMACY FOR PT AND DAUGHTER TO GRAIN COMBINER. PT LEFT AMA WITH DAUGHTER.
== END 2022-06-16 15:41 | disposition home health service (06) | DRG 871 ==
LOC: ER 07:02 → MEDS 11:08
PROVIDERS: Emergency Medicine; ADMIT Family Medicine
DX: A41.9 Sepsis, unspecified organism (principal); N17.0 Acute kidney failure with tubular necrosis; I13.0 Hypertensive heart and chronic kidney disease with heart failure and stage 1 through stage 4 chronic kidney disease, or unspecified chronic kidney disease; E87.1 Hypo-osmolality and hyponatremia; I50.32 Chronic diastolic (congestive) heart failure; N39.0 Urinary tract infection, site not specified; R65.20 Severe sepsis without septic shock; J44.9 Chronic obstructive pulmonary disease, unspecified; Z20.822 Contact with and (suspected) exposure to COVID-19; E11.22 Type 2 diabetes mellitus with diabetic chronic kidney disease; E83.51 Hypocalcemia; N18.30 Chronic kidney disease, stage 3 unspecified; M06.9 Rheumatoid arthritis, unspecified; E83.119 Hemochromatosis, unspecified; I95.9 Hypotension, unspecified; F41.8 Other specified anxiety disorders; E88.09 Other disorders of plasma-protein metabolism, not elsewhere classified; Z90.49 Acquired absence of other specified parts of digestive tract; Z98.890 Other specified postprocedural states; Z87.891 Personal history of nicotine dependence; Z88.1 Allergy status to other antibiotic agents; Z88.8 Allergy status to other drugs, medicaments and biological substances; Z79.899 Other long term (current) drug therapy
CPT/HCPCS: 0241U; 36415; 51701; 71045; 76770; 80053; 81001; 82947; 83036; 83605; 83735; 83880; 84100; 84484; 85025; 87040; 87077; 87086; 87186; 93005; 93010; 94640; 94644; 94664; 94760; 96365-59; 99285-25; A9270; C1751; G0480; J0610; J0696; J1644; J7030; J7070

== ENCOUNTER 2022-06-17 14:15 | Inpatient (IN) | payer OTHER ==
[~2022-06-17] VITALS: Ht 160 cm; Wt 64.6 kg
[~2022-06-17 14:15] MED LIST changes: +BACTRIM 400-801 EACH PO; +FLUTICASONE-SA1 EA12 INH; +HYDCHL12.5 PO; +LEVOTHYROXINE PO; +Ventolin/Prove6.7 GM INH; +[UNRECOGNIZED DRUG - OTHER] PO
[2022-06-17 15:50] LABS: BASOPHILS ABSOLUTE AUTO 0.02 K/mm3 (0.00-0.23); BASOPHILS PERCENT AUTO 0 % (0-2); EOSINOPHILS ABSOLUTE AUTO 0.03 K/mm3 (0.00-0.68); EOSINOPHILS PERCENT AUTO 0 % (0-6); Hematocrit 43.9 % (33.0-51.0); Hemoglobin 15.3 g/dL (11.5-16.0); IMMATURE GRAN ABSOLUTE AUTO 0.02 K/mm3 (0.00-0.10); IMMATURE GRAN PERCENT AUTO 0 % (0-1); LYMPHOCYTES ABSOLUTE AUTO 0.82 K/mm3 (0.84-5.20); LYMPHOCYTES PERCENT AUTO 11 % (21-46); MONOCYTES ABSOLUTE AUTO 0.57 K/mm3 (0.16-1.47); MONOCYTES PERCENT AUTO 8 % (4-13); Mean Corpuscular HGB 31.7 pg (26.0-34.0); Mean Corpuscular HGB Conc 34.9 g/dL (31.5-36.5); Mean Corpuscular Volume 91 fL (80-100); Mean Platelet Volume 10.8 fL (9.1-12.4); NEUTROPHILS PERCENT AUTO 80 % (41-73); Platelet Count 186 K/mm3 (150-400); RDW Coefficient Variation 13.2 % (11.7-14.2); RDW Standard Deviation 44.6 fL (35.1-46.3); Red Blood Cell Count 4.82 M/mm3 (3.80-5.20); White Blood Cell Count 7.36 K/mm3 (4.00-11.30)
[2022-06-17 16:05] LABS: Albumin/Globulin Ratio 0.6 (0.8-1.8); Bilirubin, Total 0.6 mg/dL (0.1-1.0); Bun/Creatinine Ratio 50.9 (12.0-20.0); Calcium, Blood 9.1 mg/dL (8.5-10.1); Creatinine, Blood 1.08 mg/dL (0.40-1.00); Globulin, Blood 5.4 g/dL (2.2-4.0); Potassium, Blood 4.1 mmol/L (3.5-5.5); Total Protein, Blood 8.4 g/dL (6.4-8.2)
--- NOTE | 2022-06-18 06:30 | NUR ---
PATIENT ADMITTED WITH UTI, INCREASED DEMENTIA AND FAMILY CONCERNS FOR SOMNOLENCE. PATIENT ALERT TO SELF AND . INTERMITTANTLY AWARE SHE IS IN THE HOSPITAL. NO COMPLAINTS OF PAIN OR NOTICABLE SIGNS OF DISCOMFORT. PATIENT WAS EXTREMELY IMPULSIVE UPON ARRIVING ON MEDICAL UNIT. THIS RN AND HER SOFTWARE QUALITY AUTOMATION ENGINEER HAD GREAT DIFFICULTY KEEPING HER IN BED SHE KEPT TRYING TO SWING HER LEGS AND ARMS OVER THE RAILS ON THE BED EVEN AFTER WE GOT HER UP TO THE COMMODE. PATIENT UNABLE TO FOLLOW MOST COMMANDS. HOWEVER, TOWARDS THE END OF THE NIGHT, SHE WOULD AT LEAST WAIT FOR ANY STAFF TO COME IN BEFORE SHE BEGAN CRAWLING OVER THE TOP OF THE RAILS. RUTHY VEST WAS USET WITH 4 RAILS FIRST 2 HOURS OF SHIFT, THEN JUST 4 RAILS AFTER SHE CALMED DOWN A LITTLE BIT. URINE IS FOUL AND WALLY IN COLOR. ADMISSION INFORMATION WAS GLEANED BEST IT COULD BE FROM [facility] WHICH WAS DOWN FIRST 4 HOURS AFTER ADMISSION.
[2022-06-18 14:49] LABS: BASOPHILS ABSOLUTE AUTO 0.01 K/mm3 (0.00-0.23); BASOPHILS PERCENT AUTO 0 % (0-2); EOSINOPHILS ABSOLUTE AUTO 0.04 K/mm3 (0.00-0.68); EOSINOPHILS PERCENT AUTO 1 % (0-6); Hematocrit 47.1 % (33.0-51.0); Hemoglobin 16.4 g/dL (11.5-16.0); IMMATURE GRAN ABSOLUTE AUTO 0.03 K/mm3 (0.00-0.10); IMMATURE GRAN PERCENT AUTO 0 % (0-1); LYMPHOCYTES ABSOLUTE AUTO 0.95 K/mm3 (0.84-5.20); LYMPHOCYTES PERCENT AUTO 11 % (21-46); MONOCYTES PERCENT AUTO 7 % (4-13); Mean Corpuscular HGB 32.3 pg (26.0-34.0); Mean Corpuscular HGB Conc 34.8 g/dL (31.5-36.5); Mean Corpuscular Volume 93 fL (80-100); Mean Platelet Volume 11.1 fL (9.1-12.4); NEUTROPHILS ABSOLUTE AUTO 6.79 K/mm3 (1.96-9.15); NEUTROPHILS PERCENT AUTO 81 % (41-73); Platelet Count 195 K/mm3 (150-400); RDW Coefficient Variation 13.2 % (11.7-14.2); RDW Standard Deviation 45.1 fL (35.1-46.3); Red Blood Cell Count 5.07 M/mm3 (3.80-5.20); White Blood Cell Count 8.42 K/mm3 (4.00-11.30)
[2022-06-18 14:58] LABS: Albumin/Globulin Ratio 0.5 (0.8-1.8); Bilirubin, Total 0.5 mg/dL (0.1-1.0); Bun/Creatinine Ratio 41.2 (12.0-20.0); Calcium, Blood 9.4 mg/dL (8.5-10.1); Creatinine, Blood 1.02 mg/dL (0.40-1.00); Globulin, Blood 5.5 g/dL (2.2-4.0); Magnesium, Blood 1.9 mg/dL (1.6-2.4); Phosphorus, Blood 2.6 mg/dL (2.5-4.9); Total Protein, Blood 8.5 g/dL (6.4-8.2)
--- NOTE | 2022-06-18 17:33 | NUR ---
DAYSHIFT SUMMARY Patient declined to have labs drawn this AM, also declined to have IV inserted. Patient very sleepy this morning, awake & OOB to use the commode then back to sleep. Poor appetite today. Daughter called to get update on patient, patient discharged 1 day ago but never received ABX ordered on discharge. Daughter reports difficulty caring for her mom, patient may need more support at home for care & medication compliance. MD assessed patient at bedside, patient states she wants to go home, pt does not want IV but agrees to lab draws & PO antibiotic medications. Patient appears to have a hard time laying still, restless in bed while blood was being drawn. Labs resulted. Vitals stable, afebrile.
--- NOTE | 2022-06-19 15:42 | NUR ---
Spiritual care visit conducted. Patient is lying on her side and resting but easily awakens to the sound of her name. She tells me about her UTI and how horrible she has felt. Then she talks at length about her spouse, Emmanuel, who a few weeks ago. She is very teaful and shares about how angry she is at God and about how Emmanuel was the best part of her world. She talks about their 59 yrs of marriage. I normalize her experience, listen empathically and provide theological insights, grief support and a calming presence. Pt responds well and shows signs of being comforted and resolute on finding ways to move forward.
--- NOTE | 2022-06-19 18:22 | NUR ---
SHIFT SUMMARY- PT ALERT AND ORIENTED. VERY IMPULSIVE AND DOES NOT WAIT FOR STAFF ASSISTANCE. TWICE PT HAS HAD A BM AND JUST THROWN HER DIRTY GARMENTS ON THE FLOOR IN A PILE AND THEN YELLED FOR STAFF THAT SHE MADE A MESS. PT WAS SEEN BY PT AND OT TODAY FOR EVALUATION AND RECOMENDATION IS SBA TO THE BATHROOM. PT DOES NOT CALL APPROPRIATELY SO FOR PT SAFETY BED AND CHAIR ALARMS ARE BEING USED. PT HAS REFUSED LABS, AND IV'S T/O HER VISIT. PT WANTS TO GO HOME. PT REFUSED TO USE A NICOTIENE PATCH HOWEVER SHE WAS WILLING TO TRY NICOTIENE GUM. SHE HAS THIS Q2 PRN IF NEEDED. PT IS A 1PPD SMOKER. PLAN IS TO DISCHARGE HOME TOMORROW. PT DAUGHTER IS AWARE AND STATED SHE WILL BE ABLE TO RECIEVE THE PT AFTER A MORNING APPOINTMENT TOMORROW PER DR ROLON.
[2022-06-20 05:36] LABS: BASOPHILS ABSOLUTE AUTO 0.05 K/mm3 (0.00-0.23); BASOPHILS PERCENT AUTO 1 % (0-2); EOSINOPHILS PERCENT AUTO 2 % (0-6); Hematocrit 48.7 % (33.0-51.0); Hemoglobin 17.2 g/dL (11.5-16.0); IMMATURE GRAN ABSOLUTE AUTO 0.07 K/mm3 (0.00-0.10); IMMATURE GRAN PERCENT AUTO 1 % (0-1); LYMPHOCYTES ABSOLUTE AUTO 1.51 K/mm3 (0.84-5.20); LYMPHOCYTES PERCENT AUTO 16 % (21-46); MONOCYTES ABSOLUTE AUTO 0.79 K/mm3 (0.16-1.47); MONOCYTES PERCENT AUTO 8 % (4-13); Mean Corpuscular HGB 32.2 pg (26.0-34.0); Mean Corpuscular HGB Conc 35.3 g/dL (31.5-36.5); Mean Corpuscular Volume 91 fL (80-100); NEUTROPHILS ABSOLUTE AUTO 6.81 K/mm3 (1.96-9.15); NEUTROPHILS PERCENT AUTO 72 % (41-73); Platelet Count 164 K/mm3 (150-400); RDW Coefficient Variation 13.1 % (11.7-14.2); RDW Standard Deviation 44.2 fL (35.1-46.3); Red Blood Cell Count 5.34 M/mm3 (3.80-5.20); White Blood Cell Count 9.43 K/mm3 (4.00-11.30)
--- NOTE | 2022-06-20 06:32 | NUR ---
SHIFT SUMMARY PATIENT ALERT AND ORIENTED X3. HAD NO COMPLAINTS OF PAIN OR SHORTNESS OF BREATH. NO ACUTE ISSUES NOTED OVERNIGHT. CALL LIGHT WITHIN REACH. REPORT GIVEN TO ONCOMING RN.
[2022-06-20] MEDS ORDERED: MIRT15 PO (14:42)
[2022-06-20] MEDS ORDERED: NIFE30ER PO (14:42)
--- NOTE | 2022-06-20 14:54 | NUR ---
DISCHARGE SUMMARY PTN DISCHARGE PAPERWORK COMPLETE. [facility] FAXED, TO FILL ALL RX NEEDED WITH FILL QTY. DAUGHTER NOTIFIED. PTN EDUCATED ON NEW MEDICATIONS AND DIAGNOSES. PTN AWAITING RIDE FROM FAMILY FRIEND, WILL BE TAKEN TO EXIT BY [place].
== END 2022-06-20 15:08 | disposition home health service (06) | DRG 690 ==
LOC: ER 14:15 → MEDS 21:20
PROVIDERS: Family Medicine; Student in an Organized Health Care Education/Training Program; ADMIT Family Medicine
DX: N39.0 Urinary tract infection, site not specified (principal); I13.0 Hypertensive heart and chronic kidney disease with heart failure and stage 1 through stage 4 chronic kidney disease, or unspecified chronic kidney disease; Z66 Do not resuscitate; J44.9 Chronic obstructive pulmonary disease, unspecified; M06.9 Rheumatoid arthritis, unspecified; M51.9 Unspecified thoracic, thoracolumbar and lumbosacral intervertebral disc disorder; Z51.5 Encounter for palliative care; I50.9 Heart failure, unspecified; F32.A Depression, unspecified; F41.9 Anxiety disorder, unspecified; Z79.51 Long term (current) use of inhaled steroids; Z79.52 Long term (current) use of systemic steroids; Z79.899 Other long term (current) drug therapy; E83.119 Hemochromatosis, unspecified; Z90.49 Acquired absence of other specified parts of digestive tract; Z98.890 Other specified postprocedural states; F17.210 Nicotine dependence, cigarettes, uncomplicated; E03.9 Hypothyroidism, unspecified; E11.22 Type 2 diabetes mellitus with diabetic chronic kidney disease; N18.30 Chronic kidney disease, stage 3 unspecified
CPT/HCPCS: 36415; 80053; 82947; 83605; 83735; 84100; 85025; 93005; 93010; 94640; 94664; 94760; 96374; 96375; 97116; 97162; 97165; 97530; 97535; 99285-25; A9270; G0378; J0696; J2405; J7030

== ENCOUNTER 2022-06-23 15:14 | Emergency (ER) | payer OTHER ==
[~2022-06-23] VITALS: Ht 162.6 cm; Wt 61.2 kg
[~2022-06-23 15:14] MED LIST changes: +MIRT15 PO; +NIFE30ER PO
[2022-06-23] MEDS ORDERED: ONDA4ODT MM (18:27)
[2022-06-23] MEDS ORDERED: IMODIUM A-D2 M1 PO (18:27)
== END 2022-06-23 19:59 | disposition home or self-care (01) ==
LOC: ER 15:14
DX: R11.0 Nausea (principal); R19.7 Diarrhea, unspecified; I13.0 Hypertensive heart and chronic kidney disease with heart failure and stage 1 through stage 4 chronic kidney disease, or unspecified chronic kidney disease; E11.22 Type 2 diabetes mellitus with diabetic chronic kidney disease; N18.9 Chronic kidney disease, unspecified; I50.9 Heart failure, unspecified; F32.A Depression, unspecified; F17.200 Nicotine dependence, unspecified, uncomplicated; F41.9 Anxiety disorder, unspecified; Z66 Do not resuscitate; Z79.899 Other long term (current) drug therapy
CPT/HCPCS: 93005; 93010; A9270; J2405; J7030

== ENCOUNTER 2022-09-13 21:15 | Inpatient (IN) | payer OTHER ==
[~2022-09-13] VITALS: Ht 162.6 cm; Wt 61.5 kg
[~2022-09-13 21:15] MED LIST changes: +IMODIUM A-D2 M1 PO
[2022-09-13 21:47] LABS: BASOPHILS ABSOLUTE AUTO 0.04 K/mm3 (0.00-0.23); BASOPHILS PERCENT AUTO 1 % (0-2); EOSINOPHILS ABSOLUTE AUTO 0.08 K/mm3 (0.00-0.68); EOSINOPHILS PERCENT AUTO 1 % (0-6); Hematocrit 42.9 % (33.0-51.0); Hemoglobin 14.2 g/dL (11.5-16.0); IMMATURE GRAN ABSOLUTE AUTO 0.03 K/mm3 (0.00-0.10); IMMATURE GRAN PERCENT AUTO 0 % (0-1); LYMPHOCYTES ABSOLUTE AUTO 1.74 K/mm3 (0.84-5.20); LYMPHOCYTES PERCENT AUTO 24 % (21-46); MONOCYTES ABSOLUTE AUTO 0.46 K/mm3 (0.16-1.47); MONOCYTES PERCENT AUTO 6 % (4-13); Mean Corpuscular HGB 31.9 pg (26.0-34.0); Mean Corpuscular HGB Conc 33.1 g/dL (31.5-36.5); Mean Corpuscular Volume 96 fL (80-100); Mean Platelet Volume 11.3 fL (9.1-12.4); NEUTROPHILS ABSOLUTE AUTO 4.86 K/mm3 (1.96-9.15); NEUTROPHILS PERCENT AUTO 67 % (41-73); Platelet Count 160 K/mm3 (150-400); RDW Coefficient Variation 13.6 % (11.7-14.2); RDW Standard Deviation 48.5 fL (35.1-46.3); Red Blood Cell Count 4.45 M/mm3 (3.80-5.20); White Blood Cell Count 7.21 K/mm3 (4.00-11.30)
[2022-09-13 22:07] LABS: Albumin, Blood 2.6 g/dL (3.4-5.0); Albumin/Globulin Ratio 0.7 (0.8-1.8); Bilirubin, Total 0.3 mg/dL (0.1-1.0); Bun/Creatinine Ratio 18.8 (12.0-20.0); Calcium, Blood 8.2 mg/dL (8.5-10.1); Creatinine, Blood 1.01 mg/dL (0.40-1.00); Globulin, Blood 3.9 g/dL (2.2-4.0); Potassium, Blood 4.2 mmol/L (3.5-5.5); Total Protein, Blood 6.5 g/dL (6.4-8.2)
[2022-09-14] MEDS ORDERED: Prinivil10 MG PO (00:25)
[2022-09-14] MEDS ORDERED: FLUTICASONE-SA1 EAC9 INH (00:25)
[2022-09-14] MEDS ORDERED: ONDA4 PO (00:27)
[2022-09-14] MEDS ORDERED: HYDCHL25 PO (00:28)
[2022-09-14] MEDS ORDERED: NEURONTIN300 MG PO (00:29)
--- NOTE | 2022-09-14 01:21 | NUR ---
ADMIT NOTE 77 YR OLD FEMALE ADMITTED TO FLOOR FROM THE ED WITH DX OF ACUTE ISCHEMIC STROKE. ED RN REPORTED PT HAD LAYED DOWN AT HOME FOR A NAP AND ABOUT A HALF HR LATER HAD SOME LEFT SIDED WEAKNESS AND LEFT DROOP, AND DECREASED FEELING IN LEFT SIDE. ARRIVED AT FLOOR. ALERT TO QUESTIONS ASKED - A/O X 3-4. PUPILS DILATED BUT EQUAL AND ROUND. LEFT RN FIELD CASE MANAGER AND LEFT DORSI/PLANTAR FLEXION SLIGHTLY WEAKER THAN RIGHT SIDE. STATES FEELING IN ALL 4 EXT. LOVENOX SHOT ADMINISTERED ORDERED. PUREE DIET. ABLE TO EAT APPLESAUCE WITH MEDS. ORIENTED TO USE OF CALL LIGHT. CALL LIGHT IN REACH. BED ALARM ON. WILL CONTINUE TO MONITOR.
--- NOTE | 2022-09-14 03:21 | NUR ---
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 ED REPORTED LEFT SIDE WEAKNESS AND LEFT FACIAL DROOP. NEURO CHECK ON THE FLOOR REVEALED LEFT WEAKER THAN RIGHT, BUT DENIED LOSS OF FEELING IN EITHER SIDE. NOTE SLIGHT LEFT SIDE FACIAL DROOP. ALERT AND ORIENTED BUT EASILY IRRITATED. ABLE TO TAKE MEDS PO WITH APPLESAUCE. WANTED "MILK". HOB ELEVATED 90 DEGREES AND WAS ABLE TO SWALLOW A FEW GULPS WITHOUT NOTED DISTRESS. MED TELE: BBB. ORIENTED TO USE OF CALL LIGHT. CALL LIGHT IN REACH. RESTING QUIETLY AT THIS TIME
[2022-09-14 05:45] LABS: Source, Urine Clean Catch
[2022-09-14 05:51] LABS: BASOPHILS ABSOLUTE AUTO 0.03 K/mm3 (0.00-0.23); BASOPHILS PERCENT AUTO 0 % (0-2); EOSINOPHILS ABSOLUTE AUTO 0.17 K/mm3 (0.00-0.68); EOSINOPHILS PERCENT AUTO 2 % (0-6); Hemoglobin 15.3 g/dL (11.5-16.0); IMMATURE GRAN ABSOLUTE AUTO 0.03 K/mm3 (0.00-0.10); IMMATURE GRAN PERCENT AUTO 0 % (0-1); LYMPHOCYTES ABSOLUTE AUTO 1.79 K/mm3 (0.84-5.20); LYMPHOCYTES PERCENT AUTO 24 % (21-46); MONOCYTES ABSOLUTE AUTO 0.55 K/mm3 (0.16-1.47); MONOCYTES PERCENT AUTO 7 % (4-13); Mean Corpuscular HGB 31.7 pg (26.0-34.0); Mean Corpuscular HGB Conc 33.3 g/dL (31.5-36.5); Mean Corpuscular Volume 95 fL (80-100); Mean Platelet Volume 11.7 fL (9.1-12.4); NEUTROPHILS ABSOLUTE AUTO 4.84 K/mm3 (1.96-9.15); NEUTROPHILS PERCENT AUTO 65 % (41-73); Platelet Count 169 K/mm3 (150-400); RDW Coefficient Variation 13.5 % (11.7-14.2); RDW Standard Deviation 48.1 fL (35.1-46.3); Red Blood Cell Count 4.83 M/mm3 (3.80-5.20); White Blood Cell Count 7.41 K/mm3 (4.00-11.30)
--- NOTE | 2022-09-14 05:52 | NUR ---
UP TO BATHROOM WITH WALKER AND 1 PERSON ASSIST. LEANS TO THE LEFT. UA SENT TO LAB FOR PROCESSING. BACK TO BED WITH ASSIST. RAILS UP X 3. CALL LIGHT IN REACH
[2022-09-14 05:54] LABS: Appearance, Urine Clear (Clear); Bilirubin, Urine Neg (Neg); Blood, Urine 3+ (Neg); Color, Urine Yellow (P-Yellow); Glucose Qualitative, Urine Neg (Neg); Ketones, Urine Neg (Neg); Leukocyte Esterase, Urine 1+ (Neg); Nitrite, Urine Neg (Neg); Protein, Urine 2+ (Neg); Specific Gravity, Urine 1.015 (1.003-1.022); Urobilinogen, Urine NORM (Normal)
[2022-09-14 06:06] LABS: Bacteria Many /hpf; Red Blood Cells, Urine 0-2 /hpf (0-2); Squamous Epithelial Cells Rare /hpf (Few)
[2022-09-14 06:24] LABS: Albumin, Blood 2.9 g/dL (3.4-5.0); Albumin/Globulin Ratio 0.7 (0.8-1.8); Bilirubin, Total 0.3 mg/dL (0.1-1.0); Bun/Creatinine Ratio 19.9 (12.0-20.0); Calcium, Blood 8.6 mg/dL (8.5-10.1); Creatinine, Blood 0.96 mg/dL (0.40-1.00); Globulin, Blood 4.4 g/dL (2.2-4.0); Potassium, Blood 3.8 mmol/L (3.5-5.5); Total Protein, Blood 7.3 g/dL (6.4-8.2)
--- NOTE | 2022-09-14 15:35 | NUR ---
NURSE NOTE THIS RN READ AND AGREES WITH MACHINIST GENERAL ASSESSMENT AND DOCUMENTATION.
--- NOTE | 2022-09-14 16:40 | NUR ---
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
[2022-09-14] MEDS ORDERED: ASPI81CH PO (17:22)
[2022-09-14] MEDS ORDERED: ATOR80 PO (17:23)
[2022-09-14] MEDS ORDERED: CLOP75 PO (17:23)
--- NOTE | 2022-09-14 18:32 | NUR ---
NURSE NOTE THIS RN AGREES WITH TUG MASTER DOCUMENTATION.
== END 2022-09-14 18:00 | disposition home health service (06) | DRG 65 ==
LOC: ER 21:15 → MEDS 09-14 00:20
PROVIDERS: Emergency Medicine; ADMIT Internal Medicine
DX: I63.9 Cerebral infarction, unspecified (principal); G81.94 Hemiplegia, unspecified affecting left nondominant side; I50.32 Chronic diastolic (congestive) heart failure; I13.0 Hypertensive heart and chronic kidney disease with heart failure and stage 1 through stage 4 chronic kidney disease, or unspecified chronic kidney disease; E11.22 Type 2 diabetes mellitus with diabetic chronic kidney disease; N18.2 Chronic kidney disease, stage 2 (mild); E03.9 Hypothyroidism, unspecified; J44.9 Chronic obstructive pulmonary disease, unspecified; G89.4 Chronic pain syndrome; E78.00 Pure hypercholesterolemia, unspecified; M06.9 Rheumatoid arthritis, unspecified; R29.703 NIHSS score 3; F41.8 Other specified anxiety disorders; M51.9 Unspecified thoracic, thoracolumbar and lumbosacral intervertebral disc disorder; F17.210 Nicotine dependence, cigarettes, uncomplicated; E83.119 Hemochromatosis, unspecified; Z90.49 Acquired absence of other specified parts of digestive tract; Z98.890 Other specified postprocedural states; Z90.6 Acquired absence of other parts of urinary tract
CPT/HCPCS: 36415; 70450; 70496; 70498; 71045; 80053; 81001; 85025; 87077; 87086; 87186; 92610; 93005; 93010; 93306; 97162; 97166; 97530; A9270; J1650; J2405; J7030; Q9967

== ENCOUNTER 2022-10-30 15:13 | Inpatient (IN) | payer OTHER, MEDICARE ==
[~2022-10-30] VITALS: Ht 165.1 cm; Wt 59.0 kg
[~2022-10-30 15:13] MED LIST changes: +ASPI81CH PO; +ATOR80 PO; +CLOP75 PO; +FLUTICASONE-SA1 EAC9 INH; +NEURONTIN300 MG PO
[2022-10-30 16:05] LABS: Calcium, Ionized (POC) 1.07 mmol/L (1.10-1.46); Chloride (POC) 99 mmol/L (98-108); Creatinine (POC) 2.1 mg/dL (0.6-1.0); Glucose (ISTAT POC) 206 mg/dL (70-99); Potassium (POC) 4.6 mmol/L (3.5-5.5); Sodium (POC) 132 mmol/L (135-148); Total CO2 (POC) 22 mmol/L (21-32)
[2022-10-30 17:10] LABS: Albumin, Blood 1.8 g/dL (3.4-5.0); Albumin/Globulin Ratio 0.3 (0.8-1.8); Bilirubin, Total 1.2 mg/dL (0.1-1.0); Bun/Creatinine Ratio 33.5 (12.0-20.0); Calcium, Blood 9.4 mg/dL (8.5-10.1); Creatinine, Blood 1.7 mg/dL (0.40-1.00); Globulin, Blood 6.4 g/dL (2.2-4.0); Potassium, Blood 4.5 mmol/L (3.5-5.5); Total Protein, Blood 8.2 g/dL (6.4-8.2)
[2022-10-30 17:28] LABS: Hematocrit 53.3 % (33.0-51.0); Hemoglobin 17.1 g/dL (11.5-16.0); Mean Corpuscular HGB 31.1 pg (26.0-34.0); Mean Corpuscular HGB Conc 32.1 g/dL (31.5-36.5); Mean Corpuscular Volume 97 fL (80-100); Mean Platelet Volume 11.8 fL (9.1-12.4); NRBC ABSOLUTE 0.06 K/mm3 (0.00-0.02); NRBC Auto 0.2 /100 WBC (0.0-0.2); Platelet Count 211 K/mm3 (150-400); RDW Coefficient Variation 14.7 % (11.7-14.2); RDW Standard Deviation 53.6 fL (35.1-46.3); White Blood Cell Count 26.88 K/mm3 (4.00-11.30)
[2022-10-30 18:02] LABS: Magnesium, Blood 3.5 mg/dL (1.6-2.4)
[2022-10-30 18:20] LABS: Creatine Kinase MB Index 1.9 (0.0-4.0)
[2022-10-30 18:42] LABS: Influenza B, PCR NEGATIVE (NEGATIVE); Resp Syncytial Virus, PCR NEGATIVE (NEGATIVE); SARS-Cov-2 (COVID-19) PCR, MMC NEGATIVE (NEGATIVE)
[2022-10-30 18:43] LABS: Influenza A, PCR POSITIVE (NEGATIVE)
[2022-10-30 19:36] LABS: BAND PERCENT MAN 6 % (0-8); BASOPHILS PERCENT MAN 0 % (0-2); EOSINOPHILS PERCENT MAN 0 % (0-6); LYMPHOCYTES ABSOLUTE MAN 2.41 K/mm3 (0.84-5.20); LYMPHOCYTES PERCENT MAN 9 % (21-46); METAMYELOCYTE ABSOLUTE MAN 0.26 K/mm3 (0.00-0.00); METAMYELOCYTE PERCENT MAN 1 % (0-0); MONOCYTES ABSOLUTE MAN 0.26 K/mm3 (0.16-1.47); MONOCYTES PERCENT MAN 1 % (4-13); MYELOCYTE ABSOLUTE MAN 0.53 K/mm3 (0.00-0.00); MYELOCYTE PERCENT MAN 2 % (0-0); NEUTROPHILS ABSOLUTE MAN 23.38 K/mm3 (1.96-9.15); SEG NEUTROPHILS PERCENT MAN 81 % (41-73); TOTAL CELLS COUNTED 100
== END 2022-10-30 23:00 | DRG 208 ==
LOC: ER 15:13 → ERHOLD 18:20
PROVIDERS: Student in an Organized Health Care Education/Training Program; ADMIT Internal Medicine
PROC: 3E03329 Introduction of Other Anti-infective into Peripheral Vein, Percutaneous Approach (ICD-10-PCS; principal; 2022-10-30)
PROC: 0BH18EZ Insertion of Endotracheal Airway into Trachea, Via Natural or Artificial Opening Endoscopic (ICD-10-PCS; 2022-10-30)
PROC: 5A12012 Performance of Cardiac Output, Single, Manual (ICD-10-PCS; 2022-10-30)
PROC: 5A2204Z Restoration of Cardiac Rhythm, Single (ICD-10-PCS; 2022-10-30)
PROC: 3E033XZ Introduction of Vasopressor into Peripheral Vein, Percutaneous Approach (ICD-10-PCS; 2022-10-30)
PROC: 02HV33Z Insertion of Infusion Device into Superior Vena Cava, Percutaneous Approach (ICD-10-PCS; 2022-10-30)
PROC: 5A1935Z Respiratory Ventilation, Less than 24 Consecutive Hours (ICD-10-PCS; 2022-10-30)
DX: J80 Acute respiratory distress syndrome (principal); A41.9 Sepsis, unspecified organism; J11.00 Influenza due to unidentified influenza virus with unspecified type of pneumonia; R65.21 Severe sepsis with septic shock; I47.20 Ventricular tachycardia, unspecified; I48.4 Atypical atrial flutter; N17.9 Acute kidney failure, unspecified; J44.0 Chronic obstructive pulmonary disease with (acute) lower respiratory infection; I50.32 Chronic diastolic (congestive) heart failure; I13.0 Hypertensive heart and chronic kidney disease with heart failure and stage 1 through stage 4 chronic kidney disease, or unspecified chronic kidney disease; Z51.5 Encounter for palliative care; Z66 Do not resuscitate; I46.2 Cardiac arrest due to underlying cardiac condition; I49.01 Ventricular fibrillation; E11.22 Type 2 diabetes mellitus with diabetic chronic kidney disease; Z99.81 Dependence on supplemental oxygen; M06.9 Rheumatoid arthritis, unspecified; F32.A Depression, unspecified; F41.9 Anxiety disorder, unspecified; E86.0 Dehydration; N18.2 Chronic kidney disease, stage 2 (mild); N18.30 Chronic kidney disease, stage 3 unspecified; E03.9 Hypothyroidism, unspecified; F17.210 Nicotine dependence, cigarettes, uncomplicated; Z86.73 Personal history of transient ischemic attack (TIA), and cerebral infarction without residual deficits; Z90.49 Acquired absence of other specified parts of digestive tract; Z79.2 Long term (current) use of antibiotics; Z79.02 Long term (current) use of antithrombotics/antiplatelets; Z79.52 Long term (current) use of systemic steroids; Z79.82 Long term (current) use of aspirin; Z79.899 Other long term (current) drug therapy
CPT/HCPCS: 0241U; 31500; 36556; 51702; 71045; 80047; 80053; 82550; 82553; 83605; 83735; 83880; 84443; 84484; 85014; 85025; 92950; 93005; 93010; 94002; 96365-59; 96366-59; 96368; 96375-59; 96376-59; 99291-25; C1751; J0171; J0282; J0692; J2543; J3010; J3370; J7030; J7060